=== PATIENT | male | born 1955 | race Caucasian/White ===

== ENCOUNTER → 2017-02-07 | Outpatient (REF) | payer MEDICARE, MEDICAID ==
[~2017-02-07] MED LIST: ATIV0.5T; ATIV1TAB2 OR; BENZ5TA PO; COGE1INJ PO; DEPA500T2 OR; DEPA500T2 PO; DEPAKOTE ER PO; IBUP600T OR; INVE3TAB2; INVE9TAB; MULTIVIT; RISP2TAB12; RISP3TAB16 OR; RISP3TAB2 PO; TRAZ50TA; TRAZ50TA OR; ZYPR10TA OR; no home meds; risperdal consta IM
[2017-02-07 20:13] LABS: BASO % 0.4 % (0.0-1.0); EOS # 0.1 10^3/uL (0.0-0.50); EOS % 1.2 % (0.0-3.0); IMMATURE GRANULOCYTE % 0.4 % (0-0); LYMPH # 2.4 10^3/uL (1.5-4.5); LYMPH % 31.1 % (24.0-44.0); MEAN CORPUSCULAR HEMOGLOBIN 31.9 pg (27.0-33.0); MEAN CORPUSCULAR HGB CONC 35.3 g/dl (32.0-36.5); MEAN CORPUSCULAR VOLUME 90.1 fl (80.0-96.0); MONO # 0.5 10^3/uL (0.0-0.8); MONO % 6.4 % (0.0-5.0); NEUTROPHILS # 4.7 10^3/uL (1.8-7.7); NEUTROPHILS % 60.5 % (36.0-66.0); PLATELET COUNT, AUTOMATED 256 10^3/uL (150-450); RED CELL DISTRIBUTION WIDTH 12.8 % (11.5-14.5); WHITE BLOOD COUNT 7.8 10^3/uL (4.0-10.0)
[2017-02-07 20:35] LABS: ALBUMIN 4.1 GM/DL (3.2-5.2); ALBUMIN/GLOBULIN RATIO 1.46 (1.00-1.93); ALKALINE PHOSPHATASE 88 U/L (45-117); ALT/SGPT 29 U/L (12-78); ANION GAP 10 MEQ/L (8-16); AST/SGOT 12 U/L (15-37); BILIRUBIN,TOTAL 0.5 MG/DL (0.2-1.0); BLOOD UREA NITROGEN 11 MG/DL (7-18); CALCIUM LEVEL 8.7 MG/DL (8.8-10.2); CARBON DIOXIDE LEVEL 27 MEQ/L (21-32); CHLORIDE LEVEL 102 MEQ/L (98-107); CHOLESTEROL LEVEL 191 MG/DL (<200); CREATININE FOR GFR 0.93 MG/DL (0.70-1.30); FREE T4 1.12 NG/DL (0.76-1.46); GLOMERULAR FILTRATION RATE > 60.0 (>49); GLUCOSE, FASTING 79 MG/DL (80-110); PHOSPHORUS LEVEL 2.8 MG/DL (2.5-4.9); POTASSIUM SERUM 4.3 MEQ/L (3.5-5.1); SODIUM LEVEL 139 MEQ/L (136-145); TOTAL PROTEIN 6.9 GM/DL (6.4-8.2); TRIGLYCERIDES LEVEL 139 MG/DL (<150)
== END ==
LOC: M SFHCPLAZ 15:45
PROVIDERS: ATTEND Family Medicine
DX: Z00.00 Encounter for general adult medical examination without abnormal findings (principal); Z13.1 Encounter for screening for diabetes mellitus; Z13.220 Encounter for screening for lipoid disorders; Z12.11 Encounter for screening for malignant neoplasm of colon; K21.9 Gastro-esophageal reflux disease without esophagitis; Z13.6 Encounter for screening for cardiovascular disorders; Z23 Encounter for immunization; N39.41 Urge incontinence; F17.210 Nicotine dependence, cigarettes, uncomplicated; Z79.899 Other long term (current) drug therapy
CPT/HCPCS: 36415; 80053; 80061; 83036; 84439; 84443; 85025; 90686; 99406; G0008; G0463

== ENCOUNTER → 2018-01-05 | Outpatient (CLI) | payer MEDICARE, MEDICAID ==
[2018-01-08 14:36] LABS: HALOPERIDOL (HALDOL) LEVEL 24 ng/mL (1-10)
== END ==
LOC: M WUC 11:59
DX: F25.9 Schizoaffective disorder, unspecified (principal)
CPT/HCPCS: 80173

== ENCOUNTER → 2018-05-15 | Outpatient (REF) | payer MEDICARE, MEDICAID ==
[2018-05-15 19:03] LABS: CREATININE, URINE 96.3 MG/DL; MALB URINE SIEMENS 10.2 MG/L; MAU/CREAT RATIO 10.5 MCG/MG (0.0-30.0)
[2018-05-15 19:04] LABS: ALBUMIN 4.1 GM/DL (3.2-5.2); ALT/SGPT 27 U/L (12-78); BILIRUBIN,TOTAL 0.5 MG/DL (0.2-1.0); BLOOD UREA NITROGEN 10 MG/DL (7-18); CALCIUM LEVEL 8.8 MG/DL (8.8-10.2); CARBON DIOXIDE LEVEL 27 MEQ/L (21-32); CHLORIDE LEVEL 103 MEQ/L (98-107); CHOLESTEROL LEVEL 192 MG/DL (<200); CHOLESTEROL RISK RATIO 5.052 (<5); CREATININE FOR GFR 1.04 MG/DL (0.70-1.30); GLOMERULAR FILTRATION RATE > 60.0 (>49); GLUCOSE, FASTING 86 MG/DL (70-100); HDL CHOLESTEROL 38 MG/DL (>40); LDL CHOLESTEROL 126 MG/DL (<100); NON-HDL-C 154 MG/DL; POTASSIUM SERUM 4.2 MEQ/L (3.5-5.1); SODIUM LEVEL 139 MEQ/L (136-145); TOTAL PROTEIN 6.8 GM/DL (6.4-8.2); TRIGLYCERIDES LEVEL 138 MG/DL (<150)
[2018-05-15 19:06] LABS: HEMOGLOBIN A1c 6.4 %
== END ==
LOC: M SFHCPLAZ 15:54
PROVIDERS: ATTEND Family Medicine
DX: Z13.228 Encounter for screening for other metabolic disorders (principal); Z13.1 Encounter for screening for diabetes mellitus; Z13.220 Encounter for screening for lipoid disorders
CPT/HCPCS: 36415; 80053; 80061; 82043; 83036; 84443; 90732; G0009; G0463

== ENCOUNTER → 2018-06-07 | Outpatient (CLI) | payer MEDICARE, MEDICAID ==
--- NOTE | 2018-06-07 17:26 | REP ---
Low-dose lung screening CT: Comparison is the PA and lateral plain film study dated 07/26/2011. Scan scanning is performed without contrast The the images are presented at lung windowing. There are no masses or nodules. There are no infiltrates or effusions. Impression: Category one low-dose lung screening CT. Incidence of malignancy is less than 1%. Annual follow-up low-dose lung screening CT is recommended. Electronically Signed by Tony Bright MD 06/07/2018 05:17 P
== END ==
LOC: M RAD 15:31
PROVIDERS: ATTEND Student in an Organized Health Care Education/Training Program
DX: Z87.891 Personal history of nicotine dependence (principal); Z12.2 Encounter for screening for malignant neoplasm of respiratory organs

== ENCOUNTER 2018-08-07 12:39 | Day surgery (SDC) | payer MEDICARE, MEDICAID ==
[~2018-08-07] VITALS: Ht 188 cm; Wt 92.5 kg
[~2018-08-07 12:39] MED LIST changes: +BENZ0.5T PO; +CHLOR50TA PO; +HALO5TA PO; +LAMO100T PO; +MULTCAP PO; +NAPR250T4 PO; +RANI15TA PO
[2018-08-07] MEDS ORDERED: NS 1,000 ML IV ONE (14:45)
[2018-08-07] MEDS ORDERED: LIDOCAINE 2% INJ 100 MG/5 ML SDV (FOR ANES.) As Ordered ONE (15:44)
[2018-08-07] MEDS ORDERED: PROPOFOL 200 MG/20 ML VIAL As Ordered ONE (15:44)
--- NOTE | 2018-08-07 15:59 | ROOR ---
Patient Name: Alexsander Krishnamurthy Procedure Date: 08/07/2018 3:42 PM Date of : 1955 Age: 62 Room: [facility] Gender: Male Note Status: Finalized Procedure: Colonoscopy Indications: Screening for colorectal malignant neoplasm Providers: Clayton BERTRAND MD Referring MD: Terry Cardona Do Requesting Provider: Medicines: Monitored Anesthesia Care Complications: No immediate complications. Procedure: Pre-Anesthesia Assessment: - The heart rate, respiratory rate, oxygen saturations, blood pressure, adequacy of pulmonary ventilation, and response to care were monitored throughout the procedure. The Colonoscope was introduced through the anus and advanced to the terminal ileum, with identification of the appendiceal orifice and IC valve. The colonoscopy was performed without difficulty. The patient tolerated the procedure well. The quality of the bowel preparation was good. Findings: The perianal and digital rectal examinations were normal. A 4 mm polyp was found in the sigmoid colon. The polyp was sessile. The polyp was removed with a cold snare. Resection and retrieval were complete. Small Internal Hemorrhoids. The exam was otherwise without abnormality on direct and retroflexion views. Impression: - One 4 mm polyp in the sigmoid colon, removed with a cold snare. Resected and retrieved. - Small Internal Hemorrhoids. - The examination was otherwise normal on direct and retroflexion views. Recommendation: - Repeat colonoscopy in 5 years for surveillance. Clayton Bertrand MD Clayton BERTRAND MD 08/07/2018 3:59:36 PM Electronically signed by Clayton BERTRAND MD Number of Addenda: 0 Note Initiated On: 08/07/2018 3:42 PM Estimated Blood Loss: Estimated blood loss: none.
[2018-08-07 16:24] VITALS: BP 177/83
== END 2018-08-07 16:50 | disposition home or self-care (01) ==
LOC: M OPP 12:39
PROVIDERS: ATTEND Internal Medicine Gastroenterology
DX: K63.5 Polyp of colon (principal); K64.8 Other hemorrhoids; Z12.11 Encounter for screening for malignant neoplasm of colon

== ENCOUNTER 2018-09-09 11:32 | Emergency (ER) | payer MEDICARE, MEDICAID ==
[~2018-09-09] VITALS: Ht 188 cm; Wt 91.8 kg
[2018-09-09 11:33] VITALS: BP 146/87
[2018-09-09] MEDS ORDERED: ISOVUE-370 76% 100ML VIAL (Q9967) As Ordered ONE (12:44)
[2018-09-09] MEDS ORDERED: AMPICILLIN SOD/SULBACTAM SOD 3 GM in D5W MINI-BAG PLUS 100 ML IV ONE (12:45)
[2018-09-09] MEDS ORDERED: KETOROLAC 30 MG/ML VIAL (J1885) IV ONE (12:45)
[2018-09-09] MEDS ORDERED: NAPR-837 PO (12:57)
[2018-09-09] MEDS ORDERED: AUGM875T28 PO (12:57)
== END 2018-09-09 13:15 | disposition left against medical advice (07) ==
LOC: M ED 11:32
DX: K04.7 Periapical abscess without sinus (principal); Z53.21 Procedure and treatment not carried out due to patient leaving prior to being seen by health care provider

== ENCOUNTER 2018-10-13 14:08 | Emergency (ER) | payer MEDICARE, MEDICAID ==
[~2018-10-13] VITALS: Ht 185.4 cm; Wt 91.8 kg
[2018-10-13 14:08] VITALS: BP 133/85
[~2018-10-13 14:08] MED LIST changes: +AUGM875T28 PO; -BENZ0.5T PO; +BENZ0.5T23 PO; +NAPR-837 PO
[2018-10-13] MEDS ORDERED: HYDR50TA70 PO (14:14)
[2018-10-13] MEDS ORDERED: CHLO25TA38 (14:14)
[2018-10-13] MEDS ORDERED: FLON1SPR NARES (14:39)
== END 2018-10-13 14:53 | disposition home or self-care (01) ==
LOC: M ED 14:08
DX: J01.90 Acute sinusitis, unspecified (principal); J44.9 Chronic obstructive pulmonary disease, unspecified; K21.9 Gastro-esophageal reflux disease without esophagitis; F20.9 Schizophrenia, unspecified; F17.200 Nicotine dependence, unspecified, uncomplicated; Z88.6 Allergy status to analgesic agent; Z79.899 Other long term (current) drug therapy; Z79.1 Long term (current) use of non-steroidal anti-inflammatories (NSAID)

== ENCOUNTER 2018-11-06 13:49 | Emergency (ER) | payer MEDICARE, MEDICAID ==
[~2018-11-06] VITALS: Ht 188 cm; Wt 89.5 kg
[~2018-11-06 13:49] MED LIST changes: +CHLO25TA38; +FLON1SPR NARES; +HYDR50TA70 PO
[2018-11-06] MEDS ORDERED: CEFD1CAP8 PO (15:38)
[2018-11-06] MEDS ORDERED: CIPR0.2S OTIC (15:38)
[2018-11-06 15:56] VITALS: BP 154/91
== END 2018-11-06 15:58 | disposition home or self-care (01) ==
LOC: M ED 13:49
DX: H60.91 Unspecified otitis externa, right ear (principal); R12 Heartburn; F25.9 Schizoaffective disorder, unspecified; F41.9 Anxiety disorder, unspecified; F17.200 Nicotine dependence, unspecified, uncomplicated; Z88.6 Allergy status to analgesic agent; Z79.899 Other long term (current) drug therapy; Z79.1 Long term (current) use of non-steroidal anti-inflammatories (NSAID)

== ENCOUNTER 2018-12-03 15:33 | Emergency (ER) | payer MEDICAID, MEDICARE ==
[~2018-12-03] VITALS: Ht 185.4 cm; Wt 86.4 kg
[~2018-12-03 15:33] MED LIST changes: +CEFD1CAP8 PO; +CIPR0.2S OTIC
[2018-12-03] MEDS ORDERED: HALO10AM (15:46)
[2018-12-03] MEDS ORDERED: NICO7DIS24 TD (15:49)
[2018-12-03 17:03] LABS: BASO % 0.5 % (0.0-1.0); EOS # 0.1 10^3/uL (0.0-0.50); EOS % 1.3 % (0.0-3.0); HEMATOCRIT 38.6 % (42.0-52.0); LYMPH # 1.5 10^3/uL (1.5-4.5); LYMPH % 24.4 % (24.0-44.0); MEAN CORPUSCULAR HEMOGLOBIN 32.7 pg (27.0-33.0); MEAN CORPUSCULAR HGB CONC 36.3 g/dl (32.0-36.5); MEAN CORPUSCULAR VOLUME 90.2 fl (80.0-96.0); MONO # 0.5 10^3/uL (0.0-0.8); NEUTROPHILS # 4.1 10^3/uL (1.8-7.7); NEUTROPHILS % 65.5 % (36.0-66.0); PLATELET COUNT, AUTOMATED 206 10^3/uL (150-450); RED BLOOD COUNT 4.28 10^6/uL (4.30-6.10); WHITE BLOOD COUNT 6.2 10^3/uL (4.0-10.0)
[2018-12-03 17:21] LABS: BLOOD UREA NITROGEN 14 MG/DL (7-18); CALCIUM LEVEL 9.3 MG/DL (8.8-10.2); CARBON DIOXIDE LEVEL 25 MEQ/L (21-32); CHLORIDE LEVEL 108 MEQ/L (98-107); CREATININE FOR GFR 1.07 MG/DL (0.70-1.30); GLOMERULAR FILTRATION RATE > 60.0 (>49); GLUCOSE, FASTING 91 MG/DL (70-100); POTASSIUM SERUM 4.1 MEQ/L (3.5-5.1); SODIUM LEVEL 141 MEQ/L (136-145)
[2018-12-03] MEDS ORDERED: ONDANSETRON 4MG/2ML VIAL (J2405) IV ONE (17:45)
[2018-12-03 18:08] LABS: ACETAMINOPHEN LEVEL < 2.0 UG/ML (10.0-30.0); ALBUMIN 3.8 GM/DL (3.2-5.2); ALT/SGPT 27 U/L (12-78); BILIRUBIN,DIRECT 0.1 MG/DL (0.0-0.2); BILIRUBIN,TOTAL 0.5 MG/DL (0.2-1.0); ETHYL ALCOHOL (ETHANOL) 0.003 % (0.000-0.010); LIPASE 81 U/L (73-393); SALICYLATE LEVEL < 1.7 MG/DL (5.0-30.0); TOTAL PROTEIN 6.8 GM/DL (6.4-8.2)
[2018-12-03] MEDS ORDERED: NS 1,000 ML IV ONE (18:15)
[2018-12-03 18:32] LABS: AMPHETAMINES LEVEL URINE NEGATIVE (NEGATIVE); BARBITURATES URINE NEGATIVE (NEGATIVE); BENZODIAZEPINES URINE NEGATIVE (NEGATIVE); CANNABINOIDS URINE NEGATIVE (NEGATIVE); COCAINE METABOLITE URINE NEGATIVE (NEGATIVE); METHADONE URINE NEGATIVE (NEGATIVE); OPIATES URINE NEGATIVE (NEGATIVE); PHENCYCLIDINE URINE NEGATIVE (NEGATIVE)
[2018-12-03] MEDS ORDERED: PROHANCE 279.3MG/ML 5ML VIAL (A9576) As Ordered ONE (19:05)
[2018-12-03] MEDS ORDERED: PROHANCE 279.3MG/ML 15ML VIAL (A9576) As Ordered ONE (19:05)
--- NOTE | 2018-12-03 20:31 | REPVR ---
EXAM: MR Head Without and With Contrast EXAM DATE/TIME: 12/03/2018 7:53 PM CLINICAL HISTORY: 63 years old, male; Dizziness and other: Hearing loss; Additional info: Eval for acoustic neuroma, hearing loss, dizzy/nausea TECHNIQUE: Imaging protocol: MR of the head without and with intravenous contrast. Contrast material: PROHANCE;Contrast volume: 17 ml;Contrast route: IV; COMPARISON: No relevant prior studies available. FINDINGS: Brain: Both IACs symmetric. Seventh and eighth nerves unremarkable. No mass or abnormal enhancement demonstrated. Otherwise unremarkable. Ventricles: Normal. No ventriculomegaly. Bones/joints: Unremarkable. Soft tissues: Normal. Sinuses: Normal as visualized. No acute sinusitis. Mastoid air cells: Normal as visualized. No mastoid effusion. Orbits: Unremarkable. IMPRESSION: No abnormalities demonstrated. Electronically signed by: Lemuel Ty On 12/03/2018 20:31:05 PM
[2018-12-03] MEDS ORDERED: MECL-68 PO (21:02)
[2018-12-03] MEDS ORDERED: ONDA4TAB6 PO (21:02)
[2018-12-03 21:18] VITALS: BP 168/72
== END 2018-12-03 21:21 | disposition home or self-care (01) ==
LOC: M ED 15:33 → EDBD 15:33 → M ED 21:21
DX: R42 Dizziness and giddiness (principal); H91.91 Unspecified hearing loss, right ear; R11.0 Nausea; J44.9 Chronic obstructive pulmonary disease, unspecified; F20.9 Schizophrenia, unspecified; K21.9 Gastro-esophageal reflux disease without esophagitis; Z79.899 Other long term (current) drug therapy; Z88.8 Allergy status to other drugs, medicaments and biological substances; Z87.891 Personal history of nicotine dependence
CPT/HCPCS: 70553; 80048; 80076; 80175; 80307; 81001; 83690; 84443; 85025; 96361; 96374; 99284; A9576; G0463; G0480; J2405

== ENCOUNTER → 2019-08-05 | Outpatient (REF) | payer MEDICARE, MEDICAID ==
[~2019-08-05] MED LIST changes: +HALO10AM; -LAMO100T PO; +LAMO100T3 PO; +MECL1TAB31 PO; +NICO7DIS24 TD; +ONDA4TAB6 PO
[2019-08-05 17:28] LABS: BASO % 0.7 % (0.0-1.0); EOS # 0.1 10^3/uL (0.0-0.5); EOS % 2.2 % (0.0-3.0); HEMATOCRIT 39.8 % (42.0-52.0); LYMPH # 1.8 10^3/uL (1.5-5.0); MEAN CORPUSCULAR HEMOGLOBIN 32.1 pg (27.0-33.0); MEAN CORPUSCULAR HGB CONC 35.2 g/dl (32.0-36.5); MEAN CORPUSCULAR VOLUME 91.3 fl (80.0-96.0); MONO # 0.5 10^3/uL (0.0-0.8); MONO % 8.3 % (0.0-5.0); NEUTROPHILS # 3.4 10^3/uL (1.5-8.5); NEUTROPHILS % 57.3 % (36.0-66.0); PLATELET COUNT, AUTOMATED 205 10^3/uL (150-450); RED BLOOD COUNT 4.36 10^6/uL (4.30-6.10); WHITE BLOOD COUNT 5.9 10^3/uL (4.0-10.0)
[2019-08-05 17:57] LABS: BLOOD UREA NITROGEN 14 MG/DL (7-18); CALCIUM LEVEL 9.4 MG/DL (8.8-10.2); CARBON DIOXIDE LEVEL 24 MEQ/L (21-32); CHLORIDE LEVEL 105 MEQ/L (98-107); CHOLESTEROL LEVEL 205 MG/DL (<200); CHOLESTEROL RISK RATIO 5.125 (<5); GLOMERULAR FILTRATION RATE > 60.0 (>49); GLUCOSE, FASTING 122 MG/DL (70-100); HDL CHOLESTEROL 40 MG/DL (>40); LDL CHOLESTEROL 119 MG/DL (<100); NON-HDL-C 165 MG/DL; POTASSIUM SERUM 4.2 MEQ/L (3.5-5.1); SODIUM LEVEL 138 MEQ/L (136-145); TRIGLYCERIDES LEVEL 229 MG/DL (<150)
[2019-08-05 18:00] LABS: FREE T4 1.27 NG/DL (0.76-1.46); THYROID STIMULATING HORMONE 2.09 uIU/ML (0.358-3.740)
[2019-08-05 18:41] LABS: HEMOGLOBIN A1c 6.1 %
== END ==
LOC: M SFHCPLAZ 15:30
PROVIDERS: ATTEND Family Medicine
DX: F20.9 Schizophrenia, unspecified (principal); E78.5 Hyperlipidemia, unspecified; R73.03 Prediabetes

== ENCOUNTER → 2020-02-20 | Outpatient (REF) | payer MEDICARE, MEDICAID | LOC: M SFHCPLAZ 10:23 | PROVIDERS: ATTEND Family Medicine | DX: R73.03 Prediabetes (principal); F20.9 Schizophrenia, unspecified; Z13.220 Encounter for screening for lipoid disorders ==

== ENCOUNTER → 2020-02-24 | Outpatient (CLI) | payer MEDICARE, MEDICAID ==
[2020-02-24 13:54] LABS: HEMATOCRIT 42.9 % (42.0-52.0); HEMOGLOBIN 14.3 g/dl (13.5-17.5); MEAN CORPUSCULAR HEMOGLOBIN 31.7 pg (27.0-33.0); MEAN CORPUSCULAR HGB CONC 33.3 g/dl (32.0-36.5); MEAN CORPUSCULAR VOLUME 95.1 fl (80.0-96.0); PLATELET COUNT, AUTOMATED 210 10^3/uL (150-450); RED BLOOD COUNT 4.51 10^6/uL (4.30-6.10); WHITE BLOOD COUNT 6.7 10^3/uL (4.0-10.0)
[2020-02-24 15:12] LABS: ALBUMIN 4.1 GM/DL (3.2-5.2); ALT/SGPT 28 U/L (12-78); BILIRUBIN,TOTAL 0.6 MG/DL (0.2-1.0); BLOOD UREA NITROGEN 13 MG/DL (7-18); CALCIUM LEVEL 9.3 MG/DL (8.8-10.2); CARBON DIOXIDE LEVEL 28 MEQ/L (21-32); CHLORIDE LEVEL 104 MEQ/L (98-107); CHOLESTEROL LEVEL 179 MG/DL (<200); CHOLESTEROL RISK RATIO 4.365 (<5); CREATININE FOR GFR 1.16 MG/DL (0.70-1.30); GLOMERULAR FILTRATION RATE > 60.0 (>49); GLUCOSE, FASTING 112 MG/DL (70-100); HDL CHOLESTEROL 41 MG/DL (>40); LDL CHOLESTEROL 112 MG/DL (<100); NON-HDL-C 138 MG/DL; POTASSIUM SERUM 4.8 MEQ/L (3.5-5.1); SODIUM LEVEL 137 MEQ/L (136-145); TOTAL PROTEIN 6.8 GM/DL (6.4-8.2); TRIGLYCERIDES LEVEL 132 MG/DL (<150)
[2020-02-24 15:24] LABS: HEMOGLOBIN A1c 5.7 %
== END ==
LOC: M WUC 09:39
PROVIDERS: ATTEND Family Medicine
DX: R73.03 Prediabetes (principal); Z13.220 Encounter for screening for lipoid disorders; F20.9 Schizophrenia, unspecified

== ENCOUNTER → 2020-06-03 | Outpatient (CLI) | payer MEDICARE, MEDICAID ==
--- NOTE | 2020-06-04 07:54 | REP ---
INDICATION: LUNG CANCER SCREENING COMPARISON: None. TECHNIQUE: Axial noncontrast images from the thoracic inlet to the upper abdomen using low-dose lung screening technique (LDCT). FINDINGS: Lung lizarraga are well aerated and symmetric. No suspicious nodule, mass or consolidation. No effusion. No pneumothorax. Tracheobronchial tree is patent. IMPRESSION: Lung-RADS category 1. Management recommendations include annual low-dose CT surveillance. <Electronically signed by Laci Levy > 06/04/20 [id number]
== END ==
LOC: M RAD 12:52
PROVIDERS: ATTEND Family Medicine
DX: Z12.2 Encounter for screening for malignant neoplasm of respiratory organs (principal)

== ENCOUNTER 2020-07-01 14:14 | Inpatient (IN) | payer MEDICAID, OTHER, SELFPAY ==
[~2020-07-01] VITALS: Ht 188 cm; Wt 90.4 kg
[~2020-07-01 14:14] MED LIST changes: -HALO10AM; +HALO10AM PO; +NAPR-849 PO; -NAPR250T4 PO
[2020-07-01] MEDS ORDERED: PROP20TA72 PO ×2 (14:40→18:21)
[2020-07-01] MEDS ORDERED: VRAY1.5C PO ×2 (14:40→18:21)
[2020-07-01 15:07] LABS: HEMATOCRIT 41.4 % (42.0-52.0); HEMOGLOBIN 14.5 g/dl (13.5-17.5); MEAN CORPUSCULAR HEMOGLOBIN 33.8 pg (27.0-33.0); MEAN CORPUSCULAR VOLUME 96.5 fl (80.0-96.0); PLATELET COUNT, AUTOMATED 182 10^3/uL (150-450); RED BLOOD COUNT 4.29 10^6/uL (4.30-6.10); WHITE BLOOD COUNT 5.9 10^3/uL (4.0-10.0)
[2020-07-01 15:29] LABS: AMPHETAMINES LEVEL URINE NEGATIVE (NEGATIVE); BARBITURATES URINE NEGATIVE (NEGATIVE); BENZODIAZEPINES URINE NEGATIVE (NEGATIVE); CANNABINOIDS URINE NEGATIVE (NEGATIVE); COCAINE METABOLITE URINE NEGATIVE (NEGATIVE); METHADONE URINE NEGATIVE (NEGATIVE); OPIATES URINE NEGATIVE (NEGATIVE); PHENCYCLIDINE URINE NEGATIVE (NEGATIVE)
[2020-07-01 15:55] LABS: ACETAMINOPHEN LEVEL < 2.0 UG/ML (10.0-30.0); ALT/SGPT 28 U/L (12-78); BILIRUBIN,DIRECT 0.2 MG/DL (0.0-0.2); BILIRUBIN,TOTAL 0.3 MG/DL (0.2-1.0); BLOOD UREA NITROGEN 12 MG/DL (7-18); CALCIUM LEVEL 9.1 MG/DL (8.8-10.2); CARBON DIOXIDE LEVEL 30 MEQ/L (21-32); CHLORIDE LEVEL 107 MEQ/L (98-107); CREATININE FOR GFR 0.97 MG/DL (0.70-1.30); ETHYL ALCOHOL (ETHANOL) < 0.003 % (0.000-0.010); GLOMERULAR FILTRATION RATE > 60.0 (>49); GLUCOSE, FASTING 106 MG/DL (70-100); POTASSIUM SERUM 4.3 MEQ/L (3.5-5.1); SALICYLATE LEVEL 1.7 MG/DL (5.0-30.0); SODIUM LEVEL 141 MEQ/L (136-145); TOTAL PROTEIN 6.6 GM/DL (6.4-8.2)
[2020-07-01] MEDS ORDERED: ONDA4TAB6 PO (18:21)
[2020-07-01] MEDS ORDERED: MECL1TAB31 PO (18:21)
[2020-07-01] MEDS ORDERED: VITMTA PO (18:21)
[2020-07-01] MEDS ORDERED: ASPI1TAB8 PO (18:21)
[2020-07-01] MEDS ORDERED: NAPR-849 PO (18:21)
[2020-07-01] MEDS ORDERED: NICO21DI9 TOP (18:21)
[2020-07-01] MEDS ORDERED: ACETAMINOPHEN TAB 650MG DOSE (2X325MG) PO PRN (18:50)
[2020-07-01] MEDS ORDERED: traZODone 50 MG TAB PO PRN (18:50)
[2020-07-01] MEDS ORDERED: MAALOX 30 ML SUSP *UDC PO PRN (18:50)
[2020-07-01] MEDS ORDERED: MOM 30ML SUSPENSION UDC PO PRN (18:50)
[2020-07-01 19:08] LABS: RSV AMPLIFICATION NEGATIVE (NEGATIVE)
[2020-07-01 23:18] VITALS: BP 144/80
[2020-07-02] MEDS ORDERED: MECLIZINE 25 MG TABLET PO PRN (00:40)
[2020-07-02] MEDS ORDERED: ONDANSETRON 4 MG ORAL DISINTEGRATING TAB PO PRN (00:40)
[2020-07-02] MEDS ORDERED: ASPIRIN 81MG ENTERIC TABLET PO PRN (00:40)
[2020-07-02] MEDS: lamoTRIgine 100MG TAB PO SCH (09:09)
[2020-07-02] MEDS: MULTIVITAMINS/MINERALS THERAP 1 TAB PO SCH (09:09)
[2020-07-02] MEDS: CARIPRAZINE 1.5MG CAPSULE (VRAYLAR) PO SCH ×2 (09:09→20:37)
[2020-07-02] MEDS: NICOTINE 21MG/24HR 1 EA TRANSDERMAL TOP SCH (09:10)
[2020-07-02] MEDS: PROPRANOLOL 20 MG TAB PO SCH ×2 (09:10→20:39)
--- NOTE | 2020-07-02 10:53 | HPEPDOC ---
[facility] Medical History & Physical Date of Admission Jul 01, 2020 Date of Service: Jul 02, 2020 History and Physical H&P dictated if needed urgently, pls call hypertype to stat transcribe [phone] job#[id number] Vital Signs Vital Signs Date Time Temp Pulse Resp B/P (MAP) Pulse Ox O2 Delivery O2 Flow Rate FiO2 07/02/20 09:10 67 144/80 07/01/20 23:18 97.1 20 99 Room Air Laboratory Data Labs 24H Laboratory Tests 2 07/01/20 14:49: Nucleated Red Blood Cells % (auto) 0.0, Anion Gap 4L, Glomerular Filtration Rate > 60.0, Calcium Level 9.1, Total Bilirubin 0.3, Direct Bilirubin 0.2, Aspartate Amino Transf (AST/SGOT) 9, Alanine Aminotransferase (ALT/SGPT) 28, Alkaline Phosphatase 69, Total Protein 6.6, Albumin 4.0, Albumin/Globulin Ratio 1.5, Thyroid Stimulating Hormone (TSH) 1.450, Salicylates Level 1.7L, Urine Opiates Screen NEGATIVE, Urine Methadone Screen NEGATIVE, Acetaminophen Level < 2.0L, Urine Barbiturates Screen NEGATIVE, Urine Phencyclidine Screen NEGATIVE, Urine Amphetamines Screen NEGATIVE, Urine Benzodiazepines Screen NEGATIVE, Urine Cocaine Metabolite Screen NEGATIVE, Urine Cannabinoids Screen NEGATIVE, Ethyl Alcohol Level < 0.003 07/01/20 18:12: Coronavirus (COVID-19)(PCR) NEGATIVE, Influenza Type A (RT-PCR) NEGATIVE, Influenza Type B (RT-PCR) NEGATIVE, Respiratory Syncytial Virus (PCR) NEGATIVE CBC/BMP Laboratory Tests 07/01/20 14:49 Home Medications Scheduled Cariprazine HCl (Vraylar) 1.5 Mg Capsule, 1.5 MG PO QAM Cariprazine HCl (Vraylar) 1.5 Mg Capsule, 3 MG PO QHS Haloperidol Decanoate (Haloperidol Decanoate) 100 Mg/1 Ml Vial, 100 MG PO ASDIRECTED EVERY 3 WEEKS Lamotrigine (Lamotrigine) 100 Mg Tablet, 100 MG PO DAILY Multivitamins (Thera M Plus Tablet) 1 Each Tablet, 1 TAB PO DAILY Nicotine (Nicotine Patch) 21 Mg/24 Hr Patch.td24, 21 MG TOP DAILY Propranolol HCl (Propranolol HCl) 20 Mg Tablet, 40 MG PO QAM Propranolol HCl (Propranolol HCl) 20 Mg Tablet, 20 MG PO QHS Scheduled PRN Aspirin (Aspirin EC) 81 Mg Tablet.dr, 243 MG PO DAILY PRN for PAIN Meclizine HCl (Meclizine HCl) 25 Mg Tablet, 25 MG PO Q8H PRN for DIZZINESS Naproxen (Naproxen) 250 Mg Tablet, 250 MG PO BID PRN for PAIN Ondansetron (Ondansetron Odt) 4 Mg Tab.rapdis, 4 MG PO QID PRN for NAUSEA OR VOMITING Allergies Coded Allergies: acetaminophen (Verified Adverse Reaction, Mild, headaches, 07/01/20) A-FIB/CHADSVASC A-FIB History Current/History of A-Fib/PAF?: No Age/Risk Factor Scoring CHADSVASC: CHADSVASC Response (Comments) Value Age Risk Factor Age < 65 years old 0 Gender Risk Factor Male 0 Hx of CHF No 0 Hx of HTN Yes 1 Hx of Stroke/TIA/or VTE No 0 Hx of Diabetes No 0 Hx of Vascular Disease No 0 Total 1 Treatment Treatment ordered: NONE ALADIR ELAM MD Jul 02, 2020 10:47
--- NOTE | 2020-07-02 12:02 | HPE ---
HISTORY AND PHYSICAL DATE OF ADMISSION: 07/01/2020 CHIEF COMPLAINT: Schizophrenia. This is a 64-year-old male who was admitted to the inpatient mental health unit for schizophrenia. Hospitalist was asked to assess the patient for any medical concerns. HISTORY OF PRESENT ILLNESS: This is a 64-year-old male with history of prediabetes, active smoking, schizophrenia, gastroesophageal reflux disease, arthritis, trigger finger of the right thumb admitted to the inpatient mental health unit. Seen today for medical H&P. He said that he has had a weight loss from 212 pounds to 196 pounds, which is intentional due to recent discussion with his doctor that he is pre-diabetic. The patient says that he has been dieting, but he has not been exercising and is quite pleased with his current weight loss program. The patient otherwise denies any dysuria, but has noted some polyuria. Denies any polyphagia or polydipsia. TSH is normal at 1.45. Creatinine is normal with no electrolyte imbalance. UA was not obtained from admission yesterday. He also complains of epigastric discomfort unrelated to meals that usually improves with Naprosyn 250 b.i.d., which he is requesting. He is currently also taking some Nexium as an outpatient, which he is also requesting. He otherwise has no other complaints. PAST MEDICAL HISTORY: 1. Schizophrenia. 2. Gastroesophageal reflux disease. 3. Right thumb trigger finger. 4. Osteoarthritis. 5. Prediabetic. PAST SURGICAL HISTORY: 1. Nasal polyp in 1979. 2. [place] teeth extraction. 3. Left hip replacement. ALLERGIES: BENZOS causing sedation; ACETAMINOPHEN and OPIATES. FAMILY HISTORY: Father age 83. Mother is 74 with breast cancer, hypertension, status post lumpectomy. Both parents have hypercholesterolemia. SOCIAL HISTORY: The patient continues to smoke cigarettes and not ready to stop. Smoking cessation is provided. No alcohol abuse. Currently not working. REVIEW OF SYSTEMS: Per HPI; 12-point system otherwise negative. PHYSICAL EXAMINATION: VITAL SIGNS: Temperature 97.1, pulse 67 sinus, respiratory rate 20, blood pressure 144/80, 99% on room air. GENERAL: The patient is awake, alert, and oriented to person, place, and time; answering questions appropriately. LUNGS: Clear to auscultation with no wheezing, rales, or rhonchi. HEART: S1, S2 sinus rhythm. ABDOMEN: Soft, nontender, and nondistended with positive bowel sounds. EXTREMITIES: No cyanosis, clubbing, or pitting edema. LABORATORY DATA: On 07/01, CBC, metabolic panel, liver function tests, and TSH have all been reviewed. Urine toxicology screen was negative. ASSESSMENT AND PLAN: This is a 64-year-old male with history of schizophrenia, heartburn, trigger finger right thumb, osteoarthritis, prediabetic admitted to the inpatient mental health unit for schizophrenia, and complains of some dyspepsia, requesting some Naprosyn and Nexium to be resumed. The patient may be resumed on all home medications. Outpatient follow-up with primary care physician. The patient is pleased with his weight loss program stating that he has lost weight because he was concerned about being prediabetic. For his increased urinary frequency, we will check a UA to rule out urinary tract infection. Hospitalist will sign of. Please reconsult and call the office for any new acute medical issues. NYDIA
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
[2020-07-02] MEDS: OMEPRAZOLE 20 MG CAP PO SCH (17:00)
[2020-07-02] MEDS: NAPROXEN 250 MG TAB PO PRN (17:02)
[2020-07-02 18:46] VITALS: BP 140/74
[2020-07-03 06:00] VITALS: BP 115/72
[2020-07-03 07:51] LABS: CHOLESTEROL RISK RATIO 4.044 (<5)
[2020-07-03 08:05] LABS: HEMOGLOBIN A1c 5.9 %
[2020-07-03] MEDS: OMEPRAZOLE 20 MG CAP PO SCH ×3 (08:26→10:27)
[2020-07-03] MEDS: lamoTRIgine 100MG TAB PO SCH (08:31)
[2020-07-03] MEDS: MULTIVITAMINS/MINERALS THERAP 1 TAB PO SCH (08:31)
[2020-07-03] MEDS: CARIPRAZINE 1.5MG CAPSULE (VRAYLAR) PO SCH ×2 (08:31→20:00)
[2020-07-03] MEDS: NICOTINE 21MG/24HR 1 EA TRANSDERMAL TOP SCH (08:31)
[2020-07-03] MEDS: PROPRANOLOL 20 MG TAB PO SCH ×2 (08:31→20:00)
[2020-07-03] MEDS: NAPROXEN 250 MG TAB PO PRN ×2 (10:25→23:46)
--- NOTE | 2020-07-03 10:58 | MHIPNPDOC ---
[facility] Progress Note Progress Note DATE OF SERVICE: 07/03/20 Chief Complaint "I am not sure why I am here, but I sent some e-mails that were misconstrued as threatening but they weren't." HISTORY OF THE PRESENT ILLNESS: Patient is a 64 -year-old Single, Unemployed, Domiciled, , male, who was brought to [facility] on a 9.45 initiated by Amira Valera, Mental Health Coordinator for [facility] for decompensation. Per ED report patient had been sending her e-mails that were at times irrational. Patient states in his interview, " She misconstrued what I said. I use to sit on the board of several mental health committees and I was trying to guide her with regards on how to work with patient with mental illness and get them their medications. They are not taking their medications and they need more services. I guess i went too far and I diagnosed her with depression and Schizophrenia. Most women have Schizophrenia and I know she has depression her went missing and she has a lot going on. And she is in charge of AOT and needing to take care of the people who need to stay compliant with medications" Patient denies suicidality, homicidality, depression, anxiety, auditory hallucinations, visual hallucinations and is not delusional, blocked, paranoid, ruminating, denies ideas of reference, dichotomous reasoning, he is not having somatic preoccupations. He is mildly tangential and hyperverbal, grandiose and talkative but not aggressive or agitated. He is not labile or irritable. PER ED REPORT: Pt brought in on 9.60 per Amira Valera, [facility] MH Crime Scene Analyst, for decompensation with Hx of schizoaffective disorder. Pt is currently enrolled in AOT with Hx of schizoaffective disorder. Per Amira Valera, pt. has been presenting sx of decompensation and paranoia. Pt is A&Ox3, makes appropriate eye contact, and is cooperative. Pt's speech was pressured at times had to be redirected a few times. Pt currently denies SI/HI, AH/VH, reports normal appetite, and slight decrease in sleep for last week. When asked why pt. thinks he is here, pt. states "Amira is retaliating against me for having strong opinions. I emailed her that I believe she has schizophrenia and depression. 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 Pt states "I have been going through a change of personality recently" and "I need a hard edge to make it through school." PSA spoke with Amira Valera (#[phone]), the following was obtained: Amira called in a citrus picker order under 9.60 on pt. for increasing sx of decompensation and paranoia. Pt has corresponded with Amira via email at an increased rate for the past few weeks, emailing at all times of day/night. Amira reports that the context of emails varies in rationality. Pt reportedly emailed Amira stating that she has schizophrenia and depression, urging her to get services. Pt has recently called the police on his landlord's son accusing him of stealing from pt.s apartment, no evidence has been found that that is true, pt is persistent with claims. Amira reports pt.s Hx of schizophrenia, stating that pt.s last decompensation in 2016 resulted in hospitalization. Pt's sx from 2016 are very similar to sx now- deep interest/borderline obsession with electricity, paranoia of people entering his home, non-sensical/cryptic emails, pressured speech, not sleeping. In 2016, Amira had to step back from services with pt. due to pt. experiencing command AH in Amira's voice. Pt currently goes to [facility] for services and sees his truck car and bus cleaner, Jabier Kimball, 1x/week. Amira reports concern for pt.s decompensation worsening. VITAL SIGNS: See below. CURRENT MEDICATIONS: See below. MENTAL STATUS EXAMINATION: Patient is a 64 -year-old Single, Unemployed, Domiciled, , male, who was brought to [facility] on a 9.45 initiated by Amira Valera, Mental Health Coordinator for [facility] for decompensation. Per ED report patient had been sending her e-mails that were at times irrational. Speech: Is fluid, conversant, normal rate, tone and volume Language skills are intact Thought processes including: linear and goal oriented Thought content: denies depression and anxiety. Denies suicidal/homicidal ideation, planning or intent. Abstract reasoning, and computation: fair Description of associations: denies, none observed Description of abnormal or psychotic thoughts: denies, none observed. Judgment: fair Insight: fair Orientation: alert and oriented to person, place, time and situation Recent and remote memory: intact Attention span and concentration: good Language: expansive Fund of knowledge: average Mood: Euthymic Mood Affect: reactive DIAGNOSES: Schizophrenia Disorder Nicotine Use Disorder Hypertension ASSESSMENT: Patient is admitted on a voluntary legal status, converted from the 9.39 as patient at time of his initial psychiatric interview did not have any indicators for an involuntary admission. He was agreeable to a voluntary adm ission, he understood that the 9.45 initiation was based on his multiple emails sent to the AOT coordinator. He admits that there may have been statements that could be misunderstood that were strongly worded and condescending. In today's session, he is conversant, denies suicidal or homicidal thoughts, denies depression or anxiety issues. He states that he is willing to stay in the hospital to "decompress." We will continue to monitor patient for continued inappropriate and bizarre behaviors. He is visible on the unit, friendly with peers and staff and compliant with medications. MANAGEMENT PLAN: Continue all medications, continue hospitalization and monitor for continued possible homicidal threats, delusional and paranoid behaviors TIME SPENT: 25 minutes. Vital Signs Vital Signs Date Time Temp Pulse Resp B/P (MAP) Pulse Ox O2 Delivery O2 Flow Rate FiO2 07/03/20 08:31 72 133/74 07/03/20 06:00 97.2 20 98 07/01/20 23:18 Room Air Laboratory Data 24H Labs Laboratory Tests 2 07/03/20 06:37: Estimated Mean Plasma Glucose 123H, Hemoglobin A1c 5.9, Triglycerides Level 137, Total Cholesterol 182, LDL Cholesterol 110H, Non-HDL Cholesterol (LDL + VLDL) 137, Total HDL Cholesterol 45, Cholesterol/HDL Ratio 4.044 Current Medications Current Medications Medications (Trade) Dose Ordered Sig/Geoff Route PRN Reason Start Time Stop Time Status Last Admin Dose Admin Acetaminophen (Tylenol Tab) 650 mg Q6HP PRN PO HEADACHE or DISCOMFORT 07/01/20 18:50 07/01/20 18:59 DC Al Hydrox/Mg Hydrox/Simethicone (Mylanta) 30 ml Q4HP PRN PO HEARTBURN/INDIGESTION 07/01/20 18:50 Aspirin (Ecotrin) 243 mg DAILY PRN PO PAIN 07/02/20 00:40 Cariprazine (Vraylar) 1.5 mg QAM PO 07/02/20 09:00 07/03/20 08:31 Cariprazine (Vraylar) 3 mg QHS PO 07/02/20 21:00 07/02/20 20:37 Home Med (Med Rec Complete!) ASDIRECTED XX 07/01/20 18:25 07/01/20 18:24 DC Lamotrigine (LaMICtal) 100 mg DAILY PO 07/02/20 09:00 07/03/20 08:31 Magnesium Hydroxide (Milk Of Magnesia) 30 ml DAILYPRN PRN PO CONSTIPATION 07/01/20 18:50 Meclizine HCl (Antivert) 25 mg Q8H PRN PO DIZZINESS 07/02/20 00:40 Multivitamins (Theragram-M) 1 tab DAILY PO 07/02/20 09:00 07/03/20 08:31 Naproxen (Naprosyn) 250 mg BID PRN PO PAIN 07/02/20 00:40 07/03/20 10:25 Nicotine (Nicoderm Cq 21mg) 1 patch DAILY TOP 07/02/20 09:00 07/03/20 08:31 Omeprazole (PriLOSEC) 40 mg DAILY PO 07/02/20 09:00 07/03/20 10:27 Ondansetron HCl (Zofran Odt) 4 mg QID PRN PO NAUSEA OR VOMITING 07/02/20 00:40 Propranolol HCl (Inderal) 20 mg QHS PO 07/02/20 21:00 07/02/20 20:39 Propranolol HCl (Inderal) 40 mg QAM PO 07/02/20 09:00 07/03/20 08:31 Trazodone HCl (Desyrel) 50 mg QHSP PRN PO INSOMNIA 07/01/20 18:50 Allergies Coded Allergies: acetaminophen (Verified Adverse Reaction, Mild, headaches, 07/01/20) ALBIN BETH NP Jul 03, 2020 10:58
[2020-07-03 16:15] VITALS: BP 142/85
[2020-07-04 06:17] VITALS: BP 125/66
[2020-07-04] MEDS: CARIPRAZINE 1.5MG CAPSULE (VRAYLAR) PO SCH ×2 (09:09→20:09)
[2020-07-04] MEDS: PROPRANOLOL 20 MG TAB PO SCH ×2 (09:09→20:09)
[2020-07-04] MEDS: MULTIVITAMINS/MINERALS THERAP 1 TAB PO SCH (09:09)
[2020-07-04] MEDS: lamoTRIgine 100MG TAB PO SCH (09:09)
[2020-07-04] MEDS: OMEPRAZOLE 20 MG CAP PO SCH (09:09)
[2020-07-04] MEDS: NICOTINE 21MG/24HR 1 EA TRANSDERMAL TOP SCH (09:38)
[2020-07-04] MEDS: NAPROXEN 250 MG TAB PO PRN ×2 (11:12→21:25)
--- NOTE | 2020-07-04 13:55 | MHIPNPDOC ---
[facility] Progress Note Progress Note DATE OF SERVICE: 07/04/20 HISTORY OF THE PRESENT ILLNESS: Patient is a 64 -year-old Single, Unemployed, Domiciled, , male, who was brought to [facility] on a 9.45 initiated by Amira Valera, Mental Health Coordinator for [facility] for decompensation. Per ED report patient had been sending her e-mails that were at times irrational. Patient states in his interview, " She misconstrued what I said. I I use to sit on the board of several mental health committees and I was trying to guide her with regards on how to work with patient with mental illness and get them their medications. They are not taking their medications and they need more services. I guess i went too far and I diagnosed her with depression and Schizophrenia. Most women have Schizophrenia and I know she has depression her went missing and she has a lot going on. And she is in charge of AOT and needing to take care of the people who need to stay compliant with medications" Patient denies suicidality, homicidality, depression, anxiety, auditory hallucinations, visual hallucinations and is not delusional, blocked, paranoid, ruminating, denies ideas of reference, dichotomous reasoning, he is not having somatic preoccupations. He is mildly tangential and mildly hyperverbal and talkative but not aggressive or agitated. He is not labile or irritable. * Pt is currently enrolled in AOT with hx of schizoaffective disorder. Per Amira Allen, pt has been presenting sx of decompensation and paranoia. Pt is A&Ox3, maked appropriate eye contact, and is cooperative. Pt's speech was pressured at times had to be redirected a few times. Pt currently denies SI/HI, AH/VH, reports normal appetite, and slight decrease in sleep for last week. When asked why pt thinks he is here, pt states "Amira is retaliating against me for having strong opinions. I emailed her that I believe she has schizophrenia and depression. 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 Pt states "I have been going through a change of personality recently" and "I need a hard edge to make it through school." PSA spoke with Amira Allen (#[phone]), the folowing was obtained: Amira called in a picker tender helper order under 9.60 on pt for increasing sx of decompensation and paranoia. Pt has corresponded with Amira via email at an increased rate for the past few weeks, emailing at all times of day/night. Amira reports that the context of emails varies in rationality. Pt reportedly emailed Amira stating that she has schizophrenia and depression, urging her to get services. Pt has recently called the police on his landlord's son accusing him of stealing from pt's apartment, no evidence has been found that that is true, pt is persistent with claims. Amira reports pt's hx of schizophrenia, stating that pt's last decompensation in 2016 resulted in hospitalization. Pt's sx from 2016 are very similar to sx now- deep interest/borderline obsession with electricity, paranoia of people entering his home, non-sensical/cryptic emails, pressured speech, not sleeping. In 2016, Amira had to step back from services with pt due to pt experiencing command AH in Amira's voice. Pt currently goes to [facility] for services and sees his consumer advocate, Jabier Kimball, 1x/week. Amira reports concern for pt's decompensation worsening. My interview of patient: He has stayed with mother and brother and they found him to be agitated and not sleeping. She claims she is "under stress". He is AOT coordinator Amira Valera said he was "paranoid" and needed a break. He discussed how he sends her emails. 10. Recently, about her mental condition, paranoia and schizophrenia and depression and that he feels she is not competent. Due to the fact that she does not seek care for this reason, she felt he was decompensating and referred him to us VITAL SIGNS: See below. NEW TEST RESULTS: . CURRENT MEDICATIONS: See below. MENTAL STATUS EXAMINATION: Patient is a 64-year old male, who is conversant and circular in his thinking. Speech: Is. No gross disturbance. Language skills are no gross disturbance. Thought processes including:. No gross disturbance. Thought content:. No gross disturbance. Abstract reasoning, and computation: Able to abstract. Description of associations: Tangential thinking, no looseness of association. Description of abnormal or psychotic thoughts: Psychotic thought that he is AOT coordinator is ill and cannot take care of him due to her illness. Judgment:, Poor. Insight:, Poor. Orientation: 3. Recent and remote memory: Intact. Attention span and concentration:. Poor. Language:. No gross disturbance. Fund of knowledge: Reasonable. Mood: Euthymic. Affect:, Congruent. DIAGNOSES: 1. Chronic schizophrenia. 2. None. 3. None. ASSESSMENT:. As above MANAGEMENT PLAN:. As per Kandy Pond. TIME SPENT: 25 minutes. Vital Signs Vital Signs Date Time Temp Pulse Resp B/P (MAP) Pulse Ox O2 Delivery O2 Flow Rate FiO2 07/04/20 09:09 80 127/72 07/04/20 06:17 97.9 18 98 Room Air Current Medications Current Medications Medications (Trade) Dose Ordered Sig/Geoff Route PRN Reason Start Time Stop Time Status Last Admin Dose Admin Acetaminophen (Tylenol Tab) 650 mg Q6HP PRN PO HEADACHE or DISCOMFORT 07/01/20 18:50 07/01/20 18:59 DC Al Hydrox/Mg Hydrox/Simethicone (Mylanta) 30 ml Q4HP PRN PO HEARTBURN/INDIGESTION 07/01/20 18:50 Aspirin (Ecotrin) 243 mg DAILY PRN PO PAIN 07/02/20 00:40 Cariprazine (Vraylar) 1.5 mg QAM PO 07/02/20 09:00 07/04/20 09:09 Cariprazine (Vraylar) 3 mg QHS PO 07/02/20 21:00 07/03/20 20:00 Home Med (Med Rec Complete!) ASDIRECTED XX 07/01/20 18:25 07/01/20 18:24 DC Lamotrigine (LaMICtal) 100 mg DAILY PO 07/02/20 09:00 07/04/20 09:09 Magnesium Hydroxide (Milk Of Magnesia) 30 ml DAILYPRN PRN PO CONSTIPATION 07/01/20 18:50 Meclizine HCl (Antivert) 25 mg Q8H PRN PO DIZZINESS 07/02/20 00:40 Multivitamins (Theragram-M) 1 tab DAILY PO 07/02/20 09:00 07/04/20 09:09 Naproxen (Naprosyn) 250 mg BID PRN PO PAIN 07/02/20 00:40 07/04/20 11:12 Nicotine (Nicoderm Cq 21mg) 1 patch DAILY TOP 07/02/20 09:00 07/04/20 09:38 Omeprazole (PriLOSEC) 40 mg DAILY PO 07/02/20 09:00 07/04/20 09:09 Ondansetron HCl (Zofran Odt) 4 mg QID PRN PO NAUSEA OR VOMITING 07/02/20 00:40 Propranolol HCl (Inderal) 20 mg QHS PO 07/02/20 21:00 07/03/20 20:00 Propranolol HCl (Inderal) 40 mg QAM PO 07/02/20 09:00 07/04/20 09:09 Trazodone HCl (Desyrel) 50 mg QHSP PRN PO INSOMNIA 07/01/20 18:50 Allergies Coded Allergies: acetaminophen (Verified Adverse Reaction, Mild, headaches, 07/01/20) LEXUS THOMPSON MD Jul 04, 2020 13:55
[2020-07-04 16:07] VITALS: BP 118/72
[2020-07-05 06:13] VITALS: BP 117/68
[2020-07-05] MEDS: NICOTINE 21MG/24HR 1 EA TRANSDERMAL TOP SCH (08:24)
[2020-07-05] MEDS: CARIPRAZINE 1.5MG CAPSULE (VRAYLAR) PO SCH ×2 (08:25→20:35)
[2020-07-05] MEDS: lamoTRIgine 100MG TAB PO SCH (08:25)
[2020-07-05] MEDS: PROPRANOLOL 20 MG TAB PO SCH ×2 (08:25→20:36)
[2020-07-05] MEDS: MULTIVITAMINS/MINERALS THERAP 1 TAB PO SCH (08:25)
[2020-07-05] MEDS: OMEPRAZOLE 20 MG CAP PO SCH (08:25)
--- NOTE | 2020-07-05 15:06 | MHIPNPDOC ---
[facility] Progress Note Progress Note DATE OF SERVICE: 07/05/20 HISTORY: Pt brought in on 9.60 per Amira Valera, [facility] Cad Operator, for decompensation with Hx of schizoaffective disorder. Pt is currently enrolled in AOT with Hx of schizoaffective disorder. Per Amira Valera, pt. has been presenting sx of decompensation and paranoia. Pt is A&Ox3, makes appropriate eye contact, and is cooperative. Pt's speech was pressured at times had to be redirected a few times. Pt currently denies SI/HI, AH/VH, reports normal appetite, and slight decrease in sleep for last week. When asked why pt. thinks he is here, pt. states "Amira is retaliating against me for having strong opinions. I emailed her that I believe she has schizophrenia and depression. 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 Pt states "I have been going through a change of personality recently" and "I need a hard edge to make it through school." PSA spoke with Amira Soto (#[phone]), the following was obtained: Amira called in a tow picker order under 9.60 on pt. for increasing sx of decompensation and paranoia. Pt has corresponded with Amira via email at an increased rate for the past few weeks, emailing at all times of day/night. Amira reports that the context of emails varies in rationality. Pt reportedly emailed Amira stating that she has schizophrenia and depression, urging her to get services. Pt has recently called the police on his landlord's son accusing him of stealing from pt.s apartment, no evidence has been found that that is true, pt is persistent with claims. Amira reports pt.s Hx of schizophrenia, stating that pt.s last decompensation in 2016 resulted in hospitalization. Pt's sx from 2016 are very similar to sx now- deep interest/borderline obsession with electricity, paranoia of people entering his home, non-sensical/cryptic emails, pressured speech, not sleeping. In 2016, Amira had to step back from services with pt. due to pt. experiencing command AH in Amira's voice. Pt currently goes to [facility] for services and sees his weaving loom operator, Jabier Kimball, 1x/week. Amira reports concern for pt.s decompensation worsening. Conversations with pt today seemed less paranoid about his AOT coordinator. However he speaks in a high volume and his mood seems expansive NEW TEST RESULTS: None. CURRENT MEDICATIONS: See below. MENTAL STATUS EXAMINATION: Patient is a. 64-year old male, who is talkative and pleasant. Speech: Is no gross disturbance. Language skills are. No gross disturbance. Thought processes including: Discussing his letters to his AOT coordinator. Thought content: As above. Abstract reasoning, and computation: Able to abstract. Description of associations:. No loose association. Description of abnormal or psychotic thoughts:. No overt psychotic thought. At this time. Judgment: Fair. Insight:. Fair. Orientation: 3. Recent and remote memory:. Intact. Attention span and concentration: Intact. Language:. No gross disturbance. Fund of knowledge: Reasonable. Mood: Good. Affect: Bright. DIAGNOSES: 1. Schizo affective disorder 2. None. 3. None. ASSESSMENT: May be manic to hypomanic MANAGEMENT PLAN:. As per Kandy Pond. TIME SPENT: 25 minutes. Vital Signs Vital Signs Date Time Temp Pulse Resp B/P (MAP) Pulse Ox O2 Delivery O2 Flow Rate FiO2 07/05/20 08:25 70 122/69 07/05/20 06:13 98.1 18 99 Room Air Current Medications Current Medications Medications (Trade) Dose Ordered Sig/Geoff Route PRN Reason Start Time Stop Time Status Last Admin Dose Admin Acetaminophen (Tylenol Tab) 650 mg Q6HP PRN PO HEADACHE or DISCOMFORT 07/01/20 18:50 07/01/20 18:59 DC Al Hydrox/Mg Hydrox/Simethicone (Mylanta) 30 ml Q4HP PRN PO HEARTBURN/INDIGESTION 07/01/20 18:50 Aspirin (Ecotrin) 243 mg DAILY PRN PO PAIN 07/02/20 00:40 Cariprazine (Vraylar) 1.5 mg QAM PO 07/02/20 09:00 07/05/20 08:25 Cariprazine (Vraylar) 3 mg QHS PO 07/02/20 21:00 07/04/20 20:09 Home Med (Med Rec Complete!) ASDIRECTED XX 07/01/20 18:25 07/01/20 18:24 DC Lamotrigine (LaMICtal) 100 mg DAILY PO 07/02/20 09:00 07/05/20 08:25 Magnesium Hydroxide (Milk Of Magnesia) 30 ml DAILYPRN PRN PO CONSTIPATION 07/01/20 18:50 Meclizine HCl (Antivert) 25 mg Q8H PRN PO DIZZINESS 07/02/20 00:40 Multivitamins (Theragram-M) 1 tab DAILY PO 07/02/20 09:00 07/05/20 08:25 Naproxen (Naprosyn) 250 mg BID PRN PO PAIN 07/02/20 00:40 07/04/20 21:25 Nicotine (Nicoderm Cq 21mg) 1 patch DAILY TOP 07/02/20 09:00 07/05/20 08:24 Omeprazole (PriLOSEC) 40 mg DAILY PO 07/02/20 09:00 07/05/20 08:25 Ondansetron HCl (Zofran Odt) 4 mg QID PRN PO NAUSEA OR VOMITING 07/02/20 00:40 Propranolol HCl (Inderal) 20 mg QHS PO 07/02/20 21:00 07/04/20 20:09 Propranolol HCl (Inderal) 40 mg QAM PO 07/02/20 09:00 07/05/20 08:25 Trazodone HCl (Desyrel) 50 mg QHSP PRN PO INSOMNIA 07/01/20 18:50 Allergies Coded Allergies: acetaminophen (Verified Adverse Reaction, Mild, headaches, 07/01/20) LEXUS THOMPSON MD Jul 05, 2020 15:06
[2020-07-05 16:14] VITALS: BP 119/67
[2020-07-05] MEDS: NAPROXEN 250 MG TAB PO PRN (20:35)
[2020-07-06 06:26] VITALS: BP 130/72
[2020-07-06] MEDS: lamoTRIgine 100MG TAB PO SCH (08:31)
[2020-07-06] MEDS: CARIPRAZINE 1.5MG CAPSULE (VRAYLAR) PO SCH ×2 (08:31→21:05)
[2020-07-06] MEDS: MULTIVITAMINS/MINERALS THERAP 1 TAB PO SCH (08:31)
[2020-07-06] MEDS: PROPRANOLOL 20 MG TAB PO SCH ×2 (08:32→21:05)
[2020-07-06] MEDS: OMEPRAZOLE 20 MG CAP PO SCH (08:32)
[2020-07-06] MEDS: NICOTINE 21MG/24HR 1 EA TRANSDERMAL TOP SCH ×2 (08:48→11:47)
[2020-07-06] MEDS: NAPROXEN 250 MG TAB PO PRN ×2 (14:34→21:06)
--- NOTE | 2020-07-06 16:04 | MHIPNPDOC ---
[facility] Progress Note Progress Note DATE OF SERVICE: 07/06/20 Chief Complaint "I am not sure why I am here, but I sent some e-mails that were misconstrued as threatening but they weren't." HISTORY OF THE PRESENT ILLNESS: Patient is a 64 -year-old Single, Unemployed, Domiciled, , male, who was brought to [facility] on a 9.45 initiated by Amira Valera, Mental Health Coordinator for [facility] for decompensation. Per ED report patient had been sending her e-mails that were at times irrational. PER ED REPORT: Pt brought in on 9.60 per Amira Valera, [facility], for decompensation with Hx of schizoaffective disorder. Pt is currently enrolled in AOT with Hx of schizoaffective disorder. Per Amira Valera, pt. has been presenting sx of decompensation and paranoia. Pt is A&Ox3, makes appropriate eye contact, and is cooperative. Pt's speech was pressured at times had to be redirected a few times. Pt currently denies SI/HI, AH/VH, reports normal appetite, and slight decrease in sleep for last week. When asked why pt. thinks he is here, pt. states "Amira is retaliating against me for having strong opinions. I emailed her that I believe she has schizophrenia and depression. 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 Pt states "I have been going through a change of personality recently" and "I need a hard edge to make it through school." PSA spoke with Amira Valera (#[phone]), the following was obtained: Amira called in a picker packer order under 9.60 on pt. for increasing sx of decompensation and paranoia. Pt has corresponded with Amira via email at an increased rate for the past few weeks, emailing at all times of day/night. Amira reports that the context of emails varies in rationality. Pt reportedly emailed Amira stating that she has schizophrenia and depression, urging her to get services. Pt has recently called the police on his landlord's son accusing him of stealing from pt.s apartment, no evidence has been found that that is true, pt is persistent with claims. Amira reports pt.s Hx of schizophrenia, stating that pt.s last decompensation in 2016 resulted in hospitalization. Pt's sx from 2016 are very similar to sx now- deep interest/borderline obsession with electricity, paranoia of people entering his home, non-sensical/cryptic emails, pressured speech, not sleeping. In 2016, Amira had to step back from services with pt. due to pt. experiencing command AH in Amira's voice. Pt currently goes to [facility] for services and sees his mud jack operator, Jabier Kimball, 1x/week. Amira reports concern for pt.s decompensation worsening. VITAL SIGNS: See below. CURRENT MEDICATIONS: See below. MENTAL STATUS EXAMINATION: Patient is a 64 -year-old Single, Unemployed, Domiciled, , male, who was brought to [facility] on a 9.45 initiated by Amira Valera, Mental Health Coordinator for [facility] for decompensation. Per ED report patient had been sending her e-mails that were at times irrational. Speech: Is fluid, conversant, normal rate, tone and volume Language skills are intact Thought processes including: linear and goal oriented Thought content: denies depression and anxiety. Denies suicidal/homicidal ideation, planning or intent. Abstract reasoning, and computation: fair Description of associations: denies, none observed Description of abnormal or psychotic thoughts: denies, none observed. Judgment: fair Insight: fair Orientation: alert and oriented to person, place, time and situation Recent and remote memory: intact Attention span and concentration: good Language: expansive Fund of knowledge: average Mood: Euthymic to Bright Mood Affect: Reactive DIAGNOSES: Schizophrenia Disorder Nicotine Use Disorder Hypertension ASSESSMENT: Patient reports that he is ready for discharge, denies depression, anxiety, visual hallucinations, and is not suicidal/homicidal. He did report mild auditory hallucinations and requested low dose of oral Haldol. Patient is due for his Haldol Decanoate either tomorrow or Monday. He does not need further hospitalization, does not pose a threat to himself or others. He has been compliant with treatment modalities while in patient, visible on the unit, pleasant with peers and staff and taking medications as rx'd. He was not psychotic, delusional or bizarre during his admission and he is requesting to be discharged tomorrow, reporting that he feels "decompressed" MANAGEMENT PLAN: Continue all medications, discharge tomorrow TIME SPENT: 25 minutes. Vital Signs Vital Signs Date Time Temp Pulse Resp B/P (MAP) Pulse Ox O2 Delivery O2 Flow Rate FiO2 07/06/20 08:32 61 130/72 07/06/20 06:26 98.9 16 98 Room Air Current Medications Current Medications Medications (Trade) Dose Ordered Sig/Geoff Route PRN Reason Start Time Stop Time Status Last Admin Dose Admin Acetaminophen (Tylenol Tab) 650 mg Q6HP PRN PO HEADACHE or DISCOMFORT 07/01/20 18:50 07/01/20 18:59 DC Al Hydrox/Mg Hydrox/Simethicone (Mylanta) 30 ml Q4HP PRN PO HEARTBURN/INDIGESTION 07/01/20 18:50 Aspirin (Ecotrin) 243 mg DAILY PRN PO PAIN 07/02/20 00:40 Cariprazine (Vraylar) 1.5 mg QAM PO 07/02/20 09:00 07/06/20 08:31 Cariprazine (Vraylar) 3 mg QHS PO 07/02/20 21:00 07/05/20 20:35 Home Med (Med Rec Complete!) ASDIRECTED XX 07/01/20 18:25 07/01/20 18:24 DC Lamotrigine (LaMICtal) 100 mg DAILY PO 07/02/20 09:00 07/06/20 08:31 Magnesium Hydroxide (Milk Of Magnesia) 30 ml DAILYPRN PRN PO CONSTIPATION 07/01/20 18:50 Meclizine HCl (Antivert) 25 mg Q8H PRN PO DIZZINESS 07/02/20 00:40 Multivitamins (Theragram-M) 1 tab DAILY PO 07/02/20 09:00 07/06/20 08:31 Naproxen (Naprosyn) 250 mg BID PRN PO PAIN 07/02/20 00:40 07/06/20 14:34 Nicotine (Nicoderm Cq 21mg) 1 patch DAILY TOP 07/02/20 09:00 07/06/20 11:47 Omeprazole (PriLOSEC) 40 mg DAILY PO 07/02/20 09:00 07/06/20 08:32 Ondansetron HCl (Zofran Odt) 4 mg QID PRN PO NAUSEA OR VOMITING 07/02/20 00:40 Propranolol HCl (Inderal) 20 mg QHS PO 07/02/20 21:00 07/05/20 20:36 Propranolol HCl (Inderal) 40 mg QAM PO 07/02/20 09:00 07/06/20 08:32 Trazodone HCl (Desyrel) 50 mg QHSP PRN PO INSOMNIA 07/01/20 18:50 Allergies Coded Allergies: acetaminophen (Verified Adverse Reaction, Mild, headaches, 07/01/20) ALBIN BETH NP Jul 06, 2020 16:04
[2020-07-06 18:33] VITALS: BP 132/68
[2020-07-07 06:37] VITALS: BP 127/58
[2020-07-07] MEDS ORDERED: HALOPERIDOL DECANOATE 100 MG/ML VIAL (J1631) IM ONE (08:00)
[2020-07-07] MEDS: OMEPRAZOLE 20 MG CAP PO SCH (08:09)
[2020-07-07] MEDS: CARIPRAZINE 1.5MG CAPSULE (VRAYLAR) PO SCH (08:11)
[2020-07-07 08:12] VITALS: BP 127/58
[2020-07-07] MEDS: PROPRANOLOL 20 MG TAB PO SCH (08:12)
[2020-07-07] MEDS: MULTIVITAMINS/MINERALS THERAP 1 TAB PO SCH (08:12)
[2020-07-07] MEDS: lamoTRIgine 100MG TAB PO SCH (08:12)
[2020-07-07] MEDS: NICOTINE 21MG/24HR 1 EA TRANSDERMAL TOP SCH (09:00)
--- NOTE | 2020-07-07 12:18 | MHDSPDOC ---
[facility] Discharge Summary Discharge Summary DATE OF ADMISSION: Jul 01, 2020 at 18:46 DATE OF DISCHARGE: July 07, 2020 at 1200 DISCHARGE DIAGNOSES: Schizophrenia Disorder Nicotine Use Disorder Hypertension REASON FRO ADMISSION: Patient is a 64 -year-old Single, Unemployed, Domiciled, , male, who was brought to [facility] on a 9.45 initiated by Amira Valera, Mental Health Coordinator for [facility] for decompensation. Per ED report patient had been sending her e-mails that were at times irrational. PER ED REPORT: Pt brought in on 9.60 per Amira Valera, [facility] P[employer], for decompensation with Hx of schizoaffective disorder. Pt is currently enrolled in AOT with Hx of schizoaffective disorder. Per Amira Valera, pt. has been presenting sx of decompensation and paranoia. Pt is A&Ox3, makes appropriate eye contact, and is cooperative. Pt's speech was pressured at times had to be redirected a few times. Pt currently denies SI/HI, AH/VH, reports normal appetite, and slight decrease in sleep for last week. When asked why pt. thinks he is here, pt. states "Amira is retaliating against me for having strong opinions. I emailed her that I believe she has schizophrenia and depression. 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 Pt states "I have been going through a change of personality recently" and "I need a hard edge to make it through school." PSA spoke with Amira Valera (#[phone]), the following was obtained: Amira called in a picking belt operator order under 9.60 on pt. for increasing sx of decompensation and paranoia. Pt has corresponded with Amira via email at an increased rate for the past few weeks, emailing at all times of day/night. Amira reports that the context of emails varies in rationality. Pt reportedly emailed Amira stating that she has schizophrenia and depression, urging her to get services. Pt has recently called the police on his landlord's son accusing him of stealing from pt.s apartment, no evidence has been found that that is true, pt is persistent with claims. Amira reports pt.s Hx of schizophrenia, stating that pt.s last decompensation in 2016 resulted in hospitalization. Pt's sx from 2016 are very similar to sx now- deep interest/borderline obsession with electricity, paranoia of people entering his home, non-sensical/cryptic emails, pressured speech, not sleeping. In 2016, Amira had to step back from services with pt. due to pt. experiencing command AH in Amira's voice. Pt currently goes to [facility] for services and sees his water pollution specialist, Jabier Kimball, 1x/week. Amira reports concern for pt.s decompensation worsening. CONSULTANTS INVOLVED: See Medical H + P by Hospitalist TREATMENT AND PROGRESS ON THE UNIT: Patient was admitted to the [facility] on a legal status he was afforded the following treatment modalities: 1) Individual Therapy 2) Group Therapy 3) Medication Management 4) Milieu Therapy 5) Safe Environment HOSPITAL COURSE: Patient was admitted to [facility] on a legal status. On initial interview patient was not depression, suicidal, homicidal, reporting anxiety, auditory hallucinations or any other psychotic symptoms of: an nmarie, paranoia, delusions, bizarre behaviors, flight of ideas, or hallucinations. He was admitted for his confession that he had been sending numerous emails to his AOT coordinator. While on the unit, he was very talkative but he was not observed to be psychotic in thought processes/content. Patient was agreeable to staying to help himself "decompress" He has no complaints of pain in solar plexus which he complained about at admission, states that he "feels better, I let go of my troubles, I destressed and I feel good and look forward to studying and getting groceries." He reports that he and a female peer are planning to have dinner. I reinforced with the patient that this is not condoned and is not encouraged. Patient verbalized understanding and states "I understand how you feel about it but we're just friends." He reports that he will be seeing his child care attendant and Minoo Connor tomorrow. He received his injection today of Haldol Decanoate 100 mg IM. Talks about the stress that his mother puts him in, very focused on his mother's manipulative and dominant behaviors. Said "familiarity breeds contempt. I want to help her but I still want my own life to live" Patient hints that his relationship with his mother had increased his stress level and caused him to ruminate and may have been the initial stressor that started symptoms of Schizophrenia exacerbation. DISCHARGE ASSESSMENT: In today's interview, patient is alert and oriented, pts dress is appropriate. Hygiene and grooming is well-kempt. Smiles on approach and is pleasant and engaged in the interview. Denies depression and anxiety. D enies suicidal and homicidal ideation, planning or intent. Denies and is not observed with ann marie, psychotic symptoms of delusions, bizarre thinking, obsessions, paranoia, ruminations illogical thoughts, flight of ideas or having poor insight and judgement. Patient has normal mentation, declines further hospitalization on a voluntary status and meets criteria for discharge today. Patient encouraged to return to hospital if his symptoms worsen or change and encouraged to call unit if he/she/they needs to speak to provider for questions regarding medications or care. MENTAL STATUS EXAMINATION ON DISCHARGE: Patient is a 64 -year-old Single, Unemployed, Domiciled, , male, who was brought to [facility] on a 9.45 initiated by Amira Valera, Mental Health Coordinator for [facility] for decompensation. Per ED report patient had been sending her e-mails that were at times irrational. Speech: Is fluid, conversant, normal rate, tone and volume Language skills are intact Thought processes including: linear and goal oriented Thought content: denies depression and anxiety. Denies suicidal/homicidal ideation, planning or intent. Abstract reasoning, and computation: fair Description of associations: denies, none observed Description of abnormal or psychotic thoughts: denies, none observed. Judgment: fair Insight: fair Orientation: alert and oriented to person, place, time and situation Recent and remote memory: intact Attention span and concentration: good Language: expansive Fund of knowledge: average Mood: Euthymic Mood Affect: reactive PLAN/FOLLOWUP ARRANGEMENTS: [facility] The amount of time spent in the coordination of care for this patient was approximately 25 minutes. ETOH/Disorder Med Rx ETOH/DRUG DISORDER RX: N/A Vital Signs/I&Os Vital Signs Date Time Temp Pulse Resp B/P (MAP) Pulse Ox O2 Delivery O2 Flow Rate FiO2 07/07/20 08:12 54 127/58 07/07/20 06:37 98.2 18 98 Room Air Medications Scheduled Cariprazine HCl (Vraylar) 1.5 Mg Capsule, 1.5 MG PO QAM, (Reported) Cariprazine HCl (Vraylar) 1.5 Mg Capsule, 3 MG PO QHS, (Reported) Haloperidol Decanoate (Haloperidol Decanoate) 100 Mg/1 Ml Vial, 100 MG PO ASDIRECTED, (Reported) EVERY 3 WEEKS Lamotrigine (Lamotrigine) 100 Mg Tablet, 100 MG PO DAILY, (Reported) Multivitamins (Thera M Plus Tablet) 1 Each Tablet, 1 TAB PO DAILY, (Reported) Nicotine (Nicotine Patch) 21 Mg/24 Hr Patch.td24, 21 MG TOP DAILY, (Reported) Propranolol HCl (Propranolol HCl) 20 Mg Tablet, 40 MG PO QAM, (Reported) Propranolol HCl (Propranolol HCl) 20 Mg Tablet, 20 MG PO QHS, (Reported) Scheduled PRN Aspirin (Aspirin EC) 81 Mg Tablet.dr, 243 MG PO DAILY PRN for PAIN, (Reported) Meclizine HCl (Meclizine HCl) 25 Mg Tablet, 25 MG PO Q8H PRN for DIZZINESS, (Reported) Naproxen (Naproxen) 250 Mg Tablet, 250 MG PO BID PRN for PAIN, (Reported) Ondansetron (Ondansetron Odt) 4 Mg Tab.rapdis, 4 MG PO QID PRN for NAUSEA OR VOMITING, (Reported) Allergies Coded Allergies: acetaminophen (Verified Adverse Reaction, Mild, headaches, 07/01/20) ALBIN BETH NP Jul 07, 2020 09:17
== END 2020-07-07 10:20 | disposition home or self-care (01) | DRG 750 ==
LOC: M ED 14:14 → M ED INP 18:46 → M PSY 23:16
PROVIDERS: ADMIT Psychiatry & Neurology Child & Adolescent Psychiatry; ATTEND Psychiatry & Neurology Child & Adolescent Psychiatry
DX: F20.9 Schizophrenia, unspecified (principal); I10 Essential (primary) hypertension; F17.200 Nicotine dependence, unspecified, uncomplicated; Z79.899 Other long term (current) drug therapy; Z79.82 Long term (current) use of aspirin; Z88.6 Allergy status to analgesic agent; K21.9 Gastro-esophageal reflux disease without esophagitis; M19.90 Unspecified osteoarthritis, unspecified site; Z88.8 Allergy status to other drugs, medicaments and biological substances; Z96.642 Presence of left artificial hip joint

== ENCOUNTER 2021-07-09 21:30 | Emergency (ER) | payer MEDICARE, MEDICAID ==
[~2021-07-09] VITALS: Ht 188 cm; Wt 85.9 kg
[~2021-07-09 21:30] MED LIST changes: +ASPI1TAB8 PO; -CEFD1CAP8 PO; +CEFD300C41 PO; -HALO5TA PO; +HALO5TAB33 PO; +NICO21DI9 TOP; +PROP20TA72 PO; +VITMTA PO; +VRAY1.5C PO
[2021-07-09] MEDS ORDERED: NS 1,000 ML IV ONE (23:45)
[2021-07-10] MEDS ORDERED: KETOROLAC 30 MG/ML 1ML VIAL IV ONE
[2021-07-10 01:29] LABS: BASO % 0.7 % (0.0-1.0); EOS # 0.1 10^3/uL (0.0-0.5); EOS % 1.7 % (0.0-3.0); HEMOGLOBIN 14.5 g/dl (13.5-17.5); LYMPH # 1.8 10^3/uL (1.5-5.0); LYMPH % 33.5 % (24.0-44.0); MEAN CORPUSCULAR HGB CONC 35.4 g/dl (32.0-36.5); MONO # 0.7 10^3/uL (0.0-0.8); MONO % 12.4 % (2.0-8.0); NEUTROPHILS # 2.7 10^3/uL (1.5-8.5); NEUTROPHILS % 51.3 % (36.0-66.0); PLATELET COUNT, AUTOMATED 177 10^3/uL (150-450); RED BLOOD COUNT 4.27 10^6/uL (4.30-6.10); WHITE BLOOD COUNT 5.3 10^3/uL (4.0-10.0)
[2021-07-10 02:09] LABS: ACETAMINOPHEN LEVEL < 2.0 UG/ML (10.0-30.0); ALBUMIN 3.9 GM/DL (3.2-5.2); ALT/SGPT 22 U/L (12-78); BILIRUBIN,DIRECT 0.1 MG/DL (0.0-0.2); BILIRUBIN,TOTAL 0.4 MG/DL (0.2-1.0); BLOOD UREA NITROGEN 15 MG/DL (7-18); CARBON DIOXIDE LEVEL 32 MEQ/L (21-32); CHLORIDE LEVEL 107 MEQ/L (98-107); CREATININE FOR GFR 0.97 MG/DL (0.70-1.30); ETHYL ALCOHOL (ETHANOL) < 0.003 % (0.000-0.010); GLOMERULAR FILTRATION RATE > 60.0 (>49); GLUCOSE, FASTING 91 MG/DL (70-100); SALICYLATE LEVEL 3.8 MG/DL (5.0-30.0); SODIUM LEVEL 140 MEQ/L (136-145); TOTAL PROTEIN 6.5 GM/DL (6.4-8.2)
[2021-07-10 02:16] LABS: AMPHETAMINES LEVEL URINE NEGATIVE (NEGATIVE); BARBITURATES URINE NEGATIVE (NEGATIVE); BENZODIAZEPINES URINE NEGATIVE (NEGATIVE); CANNABINOIDS URINE NEGATIVE (NEGATIVE); COCAINE METABOLITE URINE NEGATIVE (NEGATIVE); METHADONE URINE NEGATIVE (NEGATIVE); OPIATES URINE NEGATIVE (NEGATIVE); PHENCYCLIDINE URINE NEGATIVE (NEGATIVE)
[2021-07-10 03:45] VITALS: BP 144/86
== END 2021-07-10 04:15 | disposition home or self-care (01) ==
LOC: M ED 21:30
DX: R53.83 Other fatigue (principal); R51.9 Headache, unspecified; I45.19 Other right bundle-branch block; F25.1 Schizoaffective disorder, depressive type; F17.200 Nicotine dependence, unspecified, uncomplicated; Z79.82 Long term (current) use of aspirin; Z79.899 Other long term (current) drug therapy; Z88.6 Allergy status to analgesic agent
CPT/HCPCS: 80048; 80076; 80143; 80307; 82077; 82550; 84443; 85025; 93005; 93041; 94760; 96361; 96374; 99285; J1885

== ENCOUNTER → 2022-02-17 | Outpatient (CLI) | payer MEDICARE, MEDICAID ==
[~2022-02-17] MED LIST changes: -CHLO25TA38; +CHLO25TA88
[2022-02-17 12:33] LABS: BASO # 0.1 10^3/uL (0.0-0.2); BASO % 0.7 % (0.0-1.0); EOS # 0.1 10^3/uL (0.0-0.5); EOS % 1.1 % (0.0-3.0); HEMATOCRIT 42.4 % (42.0-52.0); HEMOGLOBIN 14.4 g/dl (13.5-17.5); LYMPH # 1.7 10^3/uL (1.5-5.0); LYMPH % 24.1 % (24.0-44.0); MEAN CORPUSCULAR HEMOGLOBIN 34.5 pg (27.0-33.0); MEAN CORPUSCULAR VOLUME 101.7 fl (80.0-96.0); MONO # 0.8 10^3/uL (0.0-0.8); MONO % 11.3 % (2.0-8.0); NEUTROPHILS # 4.5 10^3/uL (1.5-8.5); NEUTROPHILS % 62.5 % (36.0-66.0); PLATELET COUNT, AUTOMATED 190 10^3/uL (150-450); RED BLOOD COUNT 4.17 10^6/uL (4.30-6.10); WHITE BLOOD COUNT 7.1 10^3/uL (4.0-10.0)
[2022-02-17 13:37] LABS: ALT/SGPT 22 U/L (12-78); BILIRUBIN,TOTAL 0.5 MG/DL (0.2-1.0); BLOOD UREA NITROGEN 18 MG/DL (7-18); CALCIUM LEVEL 9.3 MG/DL (8.8-10.2); CARBON DIOXIDE LEVEL 30 MEQ/L (21-32); CHLORIDE LEVEL 104 MEQ/L (98-107); CHOLESTEROL LEVEL 169 MG/DL (<200); CHOLESTEROL RISK RATIO 3.755 (<5); CREATININE FOR GFR 1.12 MG/DL (0.70-1.30); GLOMERULAR FILTRATION RATE > 60.0 (>49); GLUCOSE, FASTING 119 MG/DL (70-100); HDL CHOLESTEROL 45 MG/DL (>40); LDL CHOLESTEROL 97 MG/DL (<100); NON-HDL-C 124 MG/DL; POTASSIUM SERUM 5.2 MEQ/L (3.5-5.1); SODIUM LEVEL 138 MEQ/L (136-145); TOTAL PROTEIN 6.9 GM/DL (6.4-8.2); TRIGLYCERIDES LEVEL 137 MG/DL (<150)
[2022-02-17 13:46] LABS: HEMOGLOBIN A1c 5.8 %
== END ==
LOC: M WUC 09:21
PROVIDERS: ATTEND Student in an Organized Health Care Education/Training Program
DX: F20.9 Schizophrenia, unspecified (principal)

== ENCOUNTER → 2022-07-27 | Outpatient (CLI) | payer OTHER, MEDICAID | LOC: M RAD 08:35 | PROVIDERS: ATTEND Student in an Organized Health Care Education/Training Program | DX: Z12.2 Encounter for screening for malignant neoplasm of respiratory organs (principal); F17.210 Nicotine dependence, cigarettes, uncomplicated; R91.8 Other nonspecific abnormal finding of lung field ==

== ENCOUNTER → 2022-09-20 | Outpatient (REF) | payer OTHER, MEDICAID ==
[~2022-09-20] MED LIST changes: +BENZ0.5T2 PO; -BENZ0.5T23 PO
[2022-09-20 18:36] LABS: BLOOD UREA NITROGEN 17 MG/DL (9-23); CALCIUM LEVEL 9.5 MG/DL (8.3-10.6); CARBON DIOXIDE LEVEL 28 MMOL/L (20-31); CHLORIDE LEVEL 103 MMOL/L (98-107); CHOLESTEROL LEVEL 147 MG/DL (<200); CHOLESTEROL RISK RATIO 3.43 (<5); CREATININE FOR GFR 0.99 MG/DL (0.70-1.30); GLOMERULAR FILTRATION RATE > 60.0 (>49); GLUCOSE, FASTING 160 MG/DL (74-106); HDL CHOLESTEROL 42.8 MG/DL (>40); LDL CHOLESTEROL 76.4 MG/DL (<100); NON-HDL-C 104.2 MG/DL; POTASSIUM SERUM 4.4 MMOL/L (3.5-5.1); SODIUM LEVEL 136 MMOL/L (136-145); TRIGLYCERIDES LEVEL 139 MG/DL (<150)
== END ==
LOC: M PLALAB 16:55
PROVIDERS: ATTEND Student in an Organized Health Care Education/Training Program
DX: Z00.00 Encounter for general adult medical examination without abnormal findings (principal); Z79.899 Other long term (current) drug therapy

== ENCOUNTER 2023-10-02 11:25 | Inpatient (IN) | payer OTHER, MEDICAID ==
[~2023-10-02] VITALS: Ht 188 cm; Wt 80.8 kg
[~2023-10-02 11:25] MED LIST changes: +CEFD1CAP9 PO; -CEFD300C41 PO; +MECL-209 PO; -MECL1TAB31 PO; +ONDA-282 PO; -ONDA4TAB6 PO
[2023-10-02 12:12] LABS: HEMATOCRIT 39.8 % (42.0-52.0); HEMOGLOBIN 14.2 g/dl (13.5-17.5); MEAN CORPUSCULAR HEMOGLOBIN 35.3 pg (27.0-33.0); MEAN CORPUSCULAR HGB CONC 35.7 g/dl (32.0-36.5); PLATELET COUNT, AUTOMATED 173 10^3/uL (150-450); RED BLOOD COUNT 4.02 10^6/uL (4.30-6.10); WHITE BLOOD COUNT 6.9 10^3/uL (4.0-10.0)
[2023-10-02 12:42] LABS: AMPHETAMINES LEVEL URINE NEGATIVE (NEGATIVE); BARBITURATES URINE NEGATIVE (NEGATIVE); COCAINE METABOLITE URINE NEGATIVE (NEGATIVE)
[2023-10-02 12:43] LABS: BENZODIAZEPINES URINE NEGATIVE (NEGATIVE); CANNABINOIDS URINE NEGATIVE (NEGATIVE); METHADONE URINE NEGATIVE (NEGATIVE); OPIATES URINE NEGATIVE (NEGATIVE); PHENCYCLIDINE URINE NEGATIVE (NEGATIVE)
[2023-10-02 12:45] LABS: ETHYL ALCOHOL (ETHANOL) < 0.003 % (0.000-0.010)
[2023-10-02 12:47] LABS: ALBUMIN 4.3 G/DL (3.2-5.2); ALKALINE PHOSPHATASE 74 U/L (46-116); ALT/SGPT 21 U/L (7.0-40); AST/SGOT 10 U/L (<34); BILIRUBIN,DIRECT 0.2 MG/DL (<0.4); BILIRUBIN,TOTAL 0.6 MG/DL (0.3-1.2); BLOOD UREA NITROGEN 12 MG/DL (9-23); CALCIUM LEVEL 9.7 MG/DL (8.3-10.6); CARBON DIOXIDE LEVEL 29 MMOL/L (20-31); CHLORIDE LEVEL 104 MMOL/L (98-107); CREATININE FOR GFR 0.89 MG/DL (0.70-1.30); GLOMERULAR FILTRATION RATE > 60.0 (>49); GLUCOSE, FASTING 103 MG/DL (74-106); POTASSIUM SERUM 4.6 MMOL/L (3.5-5.1); SALICYLATE LEVEL < 3.0 MG/DL (<30); SODIUM LEVEL 137 MMOL/L (136-145); TOTAL PROTEIN 6.6 G/DL (5.7-8.2)
[2023-10-02 12:48] LABS: THYROID STIMULATING HORMONE 1.457 uIU/ML (0.55-4.78)
[2023-10-02] MEDS ORDERED: HOME MED LIST COMPLETE! XX SCH (14:45)
[2023-10-02] MEDS ORDERED: traZODone 50 MG TAB PO PRN (20:30)
[2023-10-02] MEDS ORDERED: MOM 30ML SUSPENSION UDC PO PRN (20:30)
[2023-10-02] MEDS ORDERED: MAALOX 30 ML SUSP *UDC PO PRN (20:30)
[2023-10-02] MEDS ORDERED: IBUPROFEN 400MG TAB PO PRN (20:30)
[2023-10-02] MEDS ORDERED: OLANZapine 5 MG TAB PO PRN (20:30)
[2023-10-02] MEDS ORDERED: diphenhydrAMINE 25MG CAP PO PRN (20:30)
[2023-10-02 21:00] VITALS: BP 146/64; TEMP 96.2; O2SAT 98
[2023-10-03 06:33] VITALS: BP 123/77; TEMP 99.1; O2SAT 99
[2023-10-03 18:24] VITALS: BP 146/76; TEMP 97.3
[2023-10-04 05:57] VITALS: BP 131/56; TEMP 97.7; O2SAT 96
[2023-10-04 15:45] VITALS: BP 131/56; TEMP 97.7; O2SAT 96
[2023-10-04 17:54] VITALS: BP 128/62; TEMP 97.5
[2023-10-05 06:26] VITALS: BP 141/75; TEMP 98.3; O2SAT 100
[2023-10-05] MEDS: MULTIVITAMINS/MINERALS THERAP 1 TAB PO SCH (12:10)
[2023-10-06 06:19] VITALS: BP 123/72; TEMP 96.8; O2SAT 96
[2023-10-06 16:20] VITALS: BP 124/65; TEMP 98; O2SAT 98
[2023-10-07 06:24] VITALS: BP 130/72; TEMP 97.3; O2SAT 98
[2023-10-07 16:18] VITALS: BP 136/68; TEMP 97.7; O2SAT 97
[2023-10-08 06:12] VITALS: BP 107/62; TEMP 98.6; O2SAT 96
[2023-10-08 15:17] VITALS: BP 134/62; TEMP 97.2; O2SAT 97
[2023-10-09 06:09] VITALS: BP 117/59; TEMP 98; O2SAT 97
[2023-10-09 17:49] VITALS: BP 122/65; TEMP 97.5; O2SAT 98
[2023-10-10 06:20] VITALS: BP 141/77; TEMP 97; O2SAT 97
[2023-10-10 18:30] VITALS: BP 140/75; TEMP 97.2
[2023-10-11 06:45] VITALS: BP 125/62; TEMP 98; O2SAT 95
[2023-10-11 17:54] VITALS: BP 114/72; TEMP 98.1
[2023-10-12 06:36] VITALS: BP 128/67; TEMP 97.8; O2SAT 95
[2023-10-12 18:03] VITALS: BP 146/76; TEMP 96.8; O2SAT 99
[2023-10-13 06:20] VITALS: BP 121/68; TEMP 97.6; O2SAT 99
[2023-10-13 16:28] VITALS: BP 107/64; TEMP 97.3; O2SAT 97
[2023-10-14 06:09] VITALS: BP 132/67; TEMP 98; O2SAT 99
[2023-10-14 15:39] VITALS: BP 130/75; TEMP 97.9; O2SAT 98
[2023-10-15 06:02] VITALS: BP 112/55; TEMP 99.2; O2SAT 97
[2023-10-15 16:15] VITALS: BP 116/65; TEMP 97.4; O2SAT 99
[2023-10-16 05:55] VITALS: BP 118/56; TEMP 99.2; O2SAT 98
[2023-10-16] MEDS ORDERED: Multivitamins PO (10:09)
== END 2023-10-16 11:43 | disposition home or self-care (01) | DRG 885 ==
LOC: M ED 11:25 → M ED INP 20:29 → M PSY 21:02
PROVIDERS: ADMIT Student in an Organized Health Care Education/Training Program; ATTEND Student in an Organized Health Care Education/Training Program
DX: F25.0 Schizoaffective disorder, bipolar type (principal); Z91.148 Patient's other noncompliance with medication regimen for other reason; J44.9 Chronic obstructive pulmonary disease, unspecified; Z96.642 Presence of left artificial hip joint; F17.210 Nicotine dependence, cigarettes, uncomplicated; Z88.6 Allergy status to analgesic agent

== ENCOUNTER 2024-01-07 14:57 | Inpatient (IN) | payer OTHER, MEDICAID ==
[~2024-01-07] VITALS: Ht 188 cm; Wt 79.6 kg
[~2024-01-07 14:57] MED LIST changes: +Multivitamins PO
[2024-01-07 16:21] LABS: HEMATOCRIT 37.9 % (42.0-52.0); HEMOGLOBIN 13.4 g/dl (13.5-17.5); MEAN CORPUSCULAR HEMOGLOBIN 35.7 pg (27.0-33.0); MEAN CORPUSCULAR HGB CONC 35.4 g/dl (32.0-36.5); MEAN CORPUSCULAR VOLUME 101.1 fl (80.0-96.0); PLATELET COUNT, AUTOMATED 172 10^3/uL (150-450); RED BLOOD COUNT 3.75 10^6/uL (4.30-6.10); WHITE BLOOD COUNT 6.7 10^3/uL (4.0-10.0)
[2024-01-07 16:52] LABS: ETHYL ALCOHOL (ETHANOL) < 0.003 % (0.000-0.010)
[2024-01-07 16:54] LABS: SALICYLATE LEVEL < 3.0 MG/DL (<30)
[2024-01-07 16:55] LABS: ALBUMIN 4.1 G/DL (3.2-5.2); ALKALINE PHOSPHATASE 89 U/L (46-116); ALT/SGPT 20 U/L (7.0-40); AST/SGOT 10 U/L (<34); BILIRUBIN,DIRECT 0.1 MG/DL (<0.4); BILIRUBIN,TOTAL 0.4 MG/DL (0.3-1.2); BLOOD UREA NITROGEN 14 MG/DL (9-23); CALCIUM LEVEL 9.3 MG/DL (8.3-10.6); CARBON DIOXIDE LEVEL 29 MMOL/L (20-31); CHLORIDE LEVEL 107 MMOL/L (98-107); CREATININE FOR GFR 0.95 MG/DL (0.70-1.30); GLOMERULAR FILTRATION RATE > 60.0 (>49); GLUCOSE, FASTING 107 MG/DL (74-106); POTASSIUM SERUM 4.7 MMOL/L (3.5-5.1); SODIUM LEVEL 138 MMOL/L (136-145); TOTAL PROTEIN 6.7 G/DL (5.7-8.2)
[2024-01-07 16:58] LABS: THYROID STIMULATING HORMONE 1.852 uIU/ML (0.55-4.78)
[2024-01-07 17:45] LABS: AMPHETAMINES LEVEL URINE NEGATIVE (NEGATIVE); BARBITURATES URINE NEGATIVE (NEGATIVE); BENZODIAZEPINES URINE NEGATIVE (NEGATIVE)
[2024-01-07 17:46] LABS: CANNABINOIDS URINE NEGATIVE (NEGATIVE); COCAINE METABOLITE URINE NEGATIVE (NEGATIVE); METHADONE URINE NEGATIVE (NEGATIVE); OPIATES URINE NEGATIVE (NEGATIVE); PHENCYCLIDINE URINE NEGATIVE (NEGATIVE)
[2024-01-07] MEDS ORDERED: traZODone 50 MG TAB PO PRN (20:50)
[2024-01-07] MEDS ORDERED: diphenhydrAMINE 25MG CAP PO PRN (20:50)
[2024-01-07] MEDS ORDERED: MAALOX 30 ML SUSP *UDC PO PRN (20:50)
[2024-01-07] MEDS ORDERED: MOM 30ML SUSPENSION UDC PO PRN (20:50)
[2024-01-07] MEDS ORDERED: IBUPROFEN 400MG TAB PO PRN (20:50)
[2024-01-07] MEDS ORDERED: THERTAB52 PO (21:51)
[2024-01-07] MEDS ORDERED: HOME MED LIST COMPLETE! XX SCH (21:55)
[2024-01-07 22:15] VITALS: BP 142/70; TEMP 97.8; O2SAT 97
[2024-01-08] MEDS ORDERED: LORazepam 1 MG TAB PO PRN (10:35)
[2024-01-08 16:00] VITALS: BP 128/78; TEMP 97.7; O2SAT 95
[2024-01-08] MEDS ORDERED: NAPROXEN 250 MG TAB PO PRN (19:05)
[2024-01-09] MEDS: ASPIRIN 325 MG TAB PO SCH (11:59)
[2024-01-09] MEDS: MULTIVITAMINS/MINERALS THERAP 1 TAB PO SCH (11:59)
[2024-01-09 16:16] VITALS: BP 120/73; TEMP 97.1; O2SAT 100
[2024-01-09] MEDS: risperiDONE 2 MG TAB PO SCH (21:00)
[2024-01-10] MEDS ORDERED: MULTIVITAMINS/MINERALS THERAP 1 TAB PO SCH (09:00)
[2024-01-10 16:37] VITALS: BP 126/69; TEMP 97.4; O2SAT 98
[2024-01-11 14:42] VITALS: BP 135/78; TEMP 96.9; O2SAT 96
[2024-01-12 06:25] VITALS: BP 110/64; TEMP 97.2; O2SAT 96
[2024-01-12] MEDS: GABAPENTIN 100 MG CAP PO SCH (09:42)
[2024-01-12 15:09] VITALS: BP 144/67; TEMP 97.8; O2SAT 99
[2024-01-13 06:22] VITALS: BP 143/78; TEMP 98.2; O2SAT 97
[2024-01-13 14:45] VITALS: BP 118/69; TEMP 97.9; O2SAT 98
[2024-01-14 05:56] VITALS: BP 120/60; TEMP 97.4; O2SAT 98
[2024-01-14 15:40] VITALS: BP 123/64; TEMP 97.8; O2SAT 100
[2024-01-15 06:00] VITALS: BP 112/68; TEMP 97.1; O2SAT 95
[2024-01-15 14:41] VITALS: BP 133/68; TEMP 97.7; O2SAT 97
[2024-01-16 06:29] VITALS: BP 125/72; TEMP 96.1; O2SAT 96
== END 2024-01-16 11:31 | disposition home or self-care (01) | DRG 885 ==
LOC: M ED 14:57 → M ED INP 20:50 → M PSY 21:19
PROVIDERS: ADMIT Psychiatry & Neurology Psychiatry; ATTEND Psychiatry & Neurology Psychiatry
DX: F31.60 Bipolar disorder, current episode mixed, unspecified (principal); F20.9 Schizophrenia, unspecified; Z88.8 Allergy status to other drugs, medicaments and biological substances; Z96.642 Presence of left artificial hip joint

== ENCOUNTER 2024-03-29 16:35 | Inpatient (IN) | payer OTHER, MEDICAID ==
[~2024-03-29] VITALS: Ht 185.4 cm; Wt 79.6 kg
[~2024-03-29 16:35] MED LIST changes: +THERTAB52 PO
[2024-03-29 17:36] LABS: AMPHETAMINES LEVEL URINE NEGATIVE (NEGATIVE); BARBITURATES URINE NEGATIVE (NEGATIVE); BENZODIAZEPINES URINE NEGATIVE (NEGATIVE); COCAINE METABOLITE URINE NEGATIVE (NEGATIVE); METHADONE URINE NEGATIVE (NEGATIVE)
[2024-03-29 17:37] LABS: HEMATOCRIT 38.4 % (42.0-52.0); HEMOGLOBIN 13.3 g/dl (13.5-17.5); MEAN CORPUSCULAR HEMOGLOBIN 34.9 pg (27.0-33.0); MEAN CORPUSCULAR HGB CONC 34.6 g/dl (32.0-36.5); MEAN CORPUSCULAR VOLUME 100.8 fl (80.0-96.0); PLATELET COUNT, AUTOMATED 217 10^3/uL (150-450); RED BLOOD COUNT 3.81 10^6/uL (4.30-6.10)
[2024-03-29 17:37] LABS: CANNABINOIDS URINE NEGATIVE (NEGATIVE); OPIATES URINE NEGATIVE (NEGATIVE); PHENCYCLIDINE URINE NEGATIVE (NEGATIVE)
[2024-03-29 17:51] LABS: ETHYL ALCOHOL (ETHANOL) < 0.003 % (0.000-0.010)
[2024-03-29 17:53] LABS: ALKALINE PHOSPHATASE 106 U/L (40-129); ALT/SGPT 25 U/L (7.0-40); AST/SGOT 23 U/L (<34); BILIRUBIN,DIRECT 0.1 MG/DL (<0.4); BILIRUBIN,TOTAL 0.3 MG/DL (0.3-1.2); BLOOD UREA NITROGEN 12 MG/DL (9-23); CALCIUM LEVEL 9.8 MG/DL (8.3-10.6); CARBON DIOXIDE LEVEL 28 MMOL/L (20-31); CHLORIDE LEVEL 104 MMOL/L (98-107); CREATININE FOR GFR 0.85 MG/DL (0.70-1.30); GLOMERULAR FILTRATION RATE > 60.0 (>49); GLUCOSE, FASTING 107 MG/DL (74-106); POTASSIUM SERUM 4.8 MMOL/L (3.5-5.1); SALICYLATE LEVEL < 3.0 MG/DL (<30); SODIUM LEVEL 140 MMOL/L (136-145); TOTAL PROTEIN 7.1 G/DL (5.7-8.2)
[2024-03-29 17:55] LABS: THYROID STIMULATING HORMONE 1.322 uIU/ML (0.55-4.78)
[2024-03-29] MEDS ORDERED: HALO50AM INJ (18:09)
[2024-03-29] MEDS ORDERED: HOME MED LIST COMPLETE! XX SCH (18:10)
[2024-03-29] MEDS ORDERED: MOM 30ML SUSPENSION UDC PO PRN (18:45)
[2024-03-29] MEDS ORDERED: IBUPROFEN 400MG TAB PO PRN (18:45)
[2024-03-29] MEDS ORDERED: diphenhydrAMINE 25MG CAP PO PRN (18:45)
[2024-03-29] MEDS ORDERED: LORazepam 1 MG TAB PO PRN (18:45)
[2024-03-29] MEDS ORDERED: traZODone 50 MG TAB PO PRN (18:45)
[2024-03-29] MEDS ORDERED: MAALOX 30 ML SUSP *UDC PO PRN (18:45)
[2024-03-29 20:26] VITALS: BP 139/74; TEMP 97.5; O2SAT 97
[2024-03-30 06:18] VITALS: BP 141/63; TEMP 98.1; O2SAT 97
[2024-03-30] MEDS: BACITRACIN OINTMENT 30GM TUBE TOP SCH (09:00)
[2024-03-30 15:53] VITALS: BP 110/76; TEMP 97.8; O2SAT 98
[2024-03-30] MEDS: NICOTINE 14 MG/24 HR TRANSDERMAL TD SCH (20:53)
[2024-03-31 07:04] VITALS: BP 117/60; TEMP 97.7; O2SAT 98
[2024-03-31 16:42] VITALS: BP 145/65; TEMP 98.3; O2SAT 97
[2024-04-01 06:50] VITALS: BP 145/68; TEMP 97.6; O2SAT 98
[2024-04-01] MEDS: MULTIVITAMINS/MINERALS THERAP 1 TAB PO SCH (14:14)
[2024-04-01 17:11] VITALS: BP 155/78; TEMP 97.4; O2SAT 96
[2024-04-02 15:08] VITALS: BP 142/73; TEMP 97.6; O2SAT 100
[2024-04-03 06:30] VITALS: BP 124/68; TEMP 97.4; O2SAT 97
[2024-04-03 15:51] VITALS: BP 136/67; TEMP 97.2; O2SAT 100
[2024-04-04 06:41] VITALS: BP 151/82; TEMP 98.2; O2SAT 100
[2024-04-04 14:50] VITALS: BP 133/76; TEMP 97.3; O2SAT 97
[2024-04-05 15:17] VITALS: BP 152/82; TEMP 96.9; O2SAT 99
[2024-04-06 06:36] VITALS: BP 119/64; TEMP 97; O2SAT 98
[2024-04-06 15:45] VITALS: BP 133/64; TEMP 98; O2SAT 99
[2024-04-07 06:49] VITALS: BP 116/61; TEMP 96.9; O2SAT 97
[2024-04-07 15:46] VITALS: BP 137/69; TEMP 97.6; O2SAT 100
[2024-04-08 17:46] VITALS: BP 132/85; TEMP 97.1; O2SAT 99
[2024-04-09 06:29] VITALS: BP 120/57; TEMP 97.1; O2SAT 100
[2024-04-09] MEDS ORDERED: HALO5TAB33 PO (09:39)
[2024-04-09 17:38] VITALS: BP 110/62; TEMP 97.2; O2SAT 99
[2024-04-10 06:31] VITALS: BP 110/57; TEMP 97.8; O2SAT 98
[2024-04-10 16:12] VITALS: BP 116/65; TEMP 98.1; O2SAT 100
[2024-04-11 06:31] VITALS: BP 136/81; TEMP 96.4; O2SAT 95
== END 2024-04-11 10:42 | disposition home or self-care (01) | DRG 885 ==
LOC: M ED 16:35 → M ED INP 18:42 → M PSY 20:19
PROVIDERS: ADMIT Psychiatry & Neurology Neurology; ATTEND Psychiatry & Neurology Neurology
DX: F25.0 Schizoaffective disorder, bipolar type (principal); J44.9 Chronic obstructive pulmonary disease, unspecified; Z96.642 Presence of left artificial hip joint; F17.210 Nicotine dependence, cigarettes, uncomplicated; S51.801A Unspecified open wound of right forearm, initial encounter; S51.802A Unspecified open wound of left forearm, initial encounter; X83.8XXA Intentional self-harm by other specified means, initial encounter; Y92.9 Unspecified place or not applicable; Z88.6 Allergy status to analgesic agent; Z79.899 Other long term (current) drug therapy